=== PATIENT | female | born 1955 | race African-American/Black ===

== ENCOUNTER 2020-01-23 01:33 | Outpatient (CLI) | payer MEDICARE, SELFPAY ==
[2020-01-23 18:04] LABS: SARS-CoV-2 RNA PCR Negative
== END 2020-01-23 01:34 | disposition home or self-care (01) ==
LOC: ANHCOVIDDT 01:34
PROVIDERS: PCP Internal Medicine; Visit Provider Internal Medicine Gastroenterology
DX: Z01.812 Encounter for preprocedural laboratory examination (principal); Z20.828 Contact with and (suspected) exposure to other viral communicable diseases
CPT/HCPCS: 87635; C9803; U0003

== ENCOUNTER 2020-01-23 07:06 | Outpatient (CLI) | payer MEDICARE, SELFPAY ==
[2020-01-23 07:54] LABS: Alanine Aminotransferase 18 U/L (4-35); Albumin Level 4.2 g/dL (3.5-5.1); Alkaline Phosphatase 87 U/L (38-126); Anion Gap 8 mmol/L (8-16); Aspartate Amino Transferase 22 U/L (14-36); Bilirubin,Total 0.4 mg/dL (0.2-1.3); Blood Urea Nitrogen 13 mg/dL (7-17); Calcium 9.1 mg/dL (8.4-10.2); Carbon Dioxide 30 mmol/L (22-30); Chloride 102 mmol/L (98-107); Cholesterol 148 mg/dL (0-200); Estimated Glomerular Filt Rate > 60; Glucose 146 mg/dL (65-105); HDL Direct 39 mg/dL; Potassium 3.9 mmol/L (3.4-5.0); Sodium 140 mmol/L (137-145); Triglycerides 88 mg/dL (<150)
[2020-01-23 08:04] LABS: LDL Cholesterol Direct 92 mg/dL
[2020-01-23 08:09] LABS: Basophils Absolute Auto 0.1 K/mm3 (0.0-0.1); Basophils Percent Auto 0.8 % (0.2-1.2); Eosinophils Absolute Auto 0.1 K/mm3 (0-0.3); Eosinophils Percent Auto 1.9 % (0-4.4); Hematocrit 41.4 % (37.0-47.0); Hemoglobin 13.4 g/dL (12.0-15.0); Immature Granulocyte Absolute 0.09 K/mm3 (0.00-0.031); Immature Granulocyte Percent A 1.2 % (0-0.5); Lymphocytes Absolute Auto 2.18 K/mm3 (0.9-3.2); Lymphocytes Percent Auto 29.1 % (18.3-44.2); Mean Corpuscular HGB Conc 32.4 g/dl (32-36); Mean Corpuscular Hemoglobin 29.8 pg (26-34); Mean Corpuscular Volume 92.2 fl (80-100); Mean Platelet Volume 9.6 fl (7.4-10.4); Monocytes Absolute Auto 0.6 K/mm3 (0.1-0.6); Monocytes Percent Auto 8.2 % (2.6-8.5); Neutrophils Absolute Auto 4.4 K/mm3 (1.3-6.7); Neutrophils Percent Auto 58.8 % (45.5-73.1); Platelet Count Result 262 k/mm3 (150-375); Red Blood Count 4.49 M/mm3 (4.2-5.4); Red Cell Distribution Width 12.9 % (11.5-14.5); White Blood Count 7.5 K/mm3 (4.5-10.0)
[2020-01-23 08:36] LABS: Creatinine Urine 172.5 mg/dL
[2020-01-23 08:40] LABS: MALB Creatinine Ratio 11.8 mg/g (0-30); Microalbumin Urine Random 20.4 mg/L (0-16.7)
[2020-01-23 08:58] LABS: Vitamin D 25 Hydroxy 48.6 ng/mL
[2020-01-23 13:17] LABS: Hemoglobin A1C 7.2 % (<5.7)
== END 2020-01-23 07:07 | disposition home or self-care (01) ==
PROVIDERS: PCP Internal Medicine; Visit Provider Internal Medicine
DX: I10 Essential (primary) hypertension (principal); E55.9 Vitamin D deficiency, unspecified; E11.9 Type 2 diabetes mellitus without complications; E78.2 Mixed hyperlipidemia; Z51.81 Encounter for therapeutic drug level monitoring; Z79.899 Other long term (current) drug therapy
CPT/HCPCS: 36415; 80053; 80061; 82043; 82306; 83036; 84443; 85025; 87635; C9803; U0003

== ENCOUNTER 2020-01-25 11:09 | Outpatient (CLI) | payer MEDICARE, SELFPAY ==
--- NOTE | 2020-01-25 11:36 | ECG_ITS ---
Measurements Intervals [place] Rate: 79 P: 52 AL: 152 QRS: -18 QRSD: 77 T: 51 QT: 378 QTc: 436 Interpretive Statements SINUS RHYTHM CANNOT RULE OUT SEPTAL INFARCT, AGE INDETERMINATE ABNORMAL ECG Electronically Signed On 01-25-2020 13:49:45 ELECTRONIC DESIGN ENGINEER by Santy Norman D.O.
[2020-01-29 19:09] LABS: Glutamic acid decarboxylase AA <5 IU/mL (<5)
[2020-02-01 10:55] LABS: Islet Cell Antibody Screen NEGATIVE (NEGATIVE)
== END 2020-01-25 11:10 | disposition home or self-care (01) ==
PROVIDERS: PCP Internal Medicine; Visit Provider Internal Medicine
DX: Z01.818 Encounter for other preprocedural examination (principal); E11.9 Type 2 diabetes mellitus without complications; I10 Essential (primary) hypertension; R94.31 Abnormal electrocardiogram [ECG] [EKG]
CPT/HCPCS: 36415; 86341; 93005

== ENCOUNTER 2020-01-27 02:01 | Day surgery (SDC) | payer MEDICARE, SELFPAY ==
[2020-01-22 13:04] VITALS: BMI 25.8
[2020-01-27 09:37] VITALS: BP 125/81; PULSE 89; RESP 16; TEMP 36.2; O2SAT 100; BMI 25.5
[2020-01-27] MEDS: LACTATED RINGERS 1,000 ML 150 ML IV CONT (09:52)
[2020-01-27 09:53] LABS: Glucose Point of Care 130 (65-105)
--- NOTE | 2020-01-27 09:55 | WPDANESEPPF ---
Anes - Initial Pre Proc Eval Procedure: Operation Date: 01/27/20 10:30 Proposed Procedures p Screening Colonoscopy - Gregg Russell MD Date/Time: 01/27/20 09:55 Surgeon: Gregg Russell MD Pre Op Diagnosis: neoplasm screening Patient Data Age: 64 Gender: F Height: 5 ft 8 in Weight: 76.2 kg Last Vital Signs Temp 36.2 C L 01/27/20 09:37 Pulse 89 01/27/20 09:37 Resp 16 01/27/20 09:37 BP 125/81 01/27/20 09:37 Pulse Ox 100 01/27/20 09:37 Allergies Allergy/AdvReac Type Severity Reaction Status Date / Time No Known Allergies Allergy Verified 01/27/20 09:35 Home Medications Medication Instructions Recorded Confirmed Type aspirin 81 mg tablet,delayed 81 mg PO DAILY #90 tablet 01/20/20 01/22/20 Rx release cholecalciferol (vitamin D3) 125 125 mcg PO DAILY #1 cap 01/20/20 01/22/20 Rx mcg (5,000 unit) capsule dulaglutide 0.75 mg/0.5 mL 0.75 mg SUBCUT WEEKLY #2 ml 01/20/20 01/22/20 Rx subcutaneous pen injector flash glucose sensor #1 ea 01/20/20 01/20/20 Rx lisinopril 40 mg tablet 40 mg PO DAILY #90 tablet 01/20/20 01/22/20 Rx metformin 500 mg tablet 1,000 mg PO BID 90 Days #360 tablet 01/20/20 01/22/20 Rx pravastatin 10 mg tablet 10 mg PO DAILY #90 tablet 01/20/20 01/22/20 Rx Laboratory Tests 01/27/20 09:43 POC Capillary Glucose 130 mg/dl H mg/dl (65-105) Patient hx anesthesia problems: none Family hx anesthesia problems: none PMFSH Past Medical History Medical History Diabetes Hyperlipidemia Hypertension Family History Family History Sibling Family history of diabetes mellitus in first degree relative Father Family history of lung cancer Mother Patient's mother is Social History Social History Years smoked: 7 Smoking status: Former smoker Tobacco type: cigarettes Alcohol intake: current Living arrangements: alone Spiritual care concerns: No Anes - Eval Final PreProcedure Day of Procedure 01/27/20 09:55 Patient weight: overweight Heart: regular rate and rhythm Lungs: clear to auscultation Airway: Mallampati scale class II Neurological: alert and oriented Last oral intake: >/= 8 hours ASA classification: III Emergent: no Anesthetic plan: proceed Anesthesia type and monitoring: general GIVS and standard monitoring Informed Consent: The patient's anesthetic plan and its attendant risks and benefits were discussed with the patient/family/POA. Questions were solicited and answers provided to the satisfaction of the patient/family/POA.
--- NOTE | 2020-01-27 10:34 | PM.HPGS ---
History of Present Illness History of Present Illness Consent: Risks, benefits, and alternatives have been discussed and questions answered. Patient agrees to proceed with procedure. Chief complaint: neoplasm screening Narrative: Oni Smallwood is a 64 year old female with colon polyps 2 years ago in [place], sister with colon cancer. Recent change in bowel habits. Review of Systems Constitutional: Constitutional: Denies headache(s) and Denies weakness Eyes: Eyes: Denies blurry vision ENT: Reports Normal hearing present, Denies headache(s) and Denies neck pain Cardiovascular: Cardiovascular: Denies chest pain and Denies dyspnea Respiratory: Respiratory: Denies dyspnea Gastrointestinal: Gastrointestinal: Reports no additional gastrointestinal complaints Genitourinary: Genitourinary: Denies dysuria Musculoskeletal: Musculoskeletal: Denies neck pain Integumentary/Breasts: Skin/Breast: Denies dry skin Neurologic: Reports Normal hearing present, Denies headache(s) and Denies weakness Psychiatric: Psychiatric: Denies anxiety Endocrine: Endocrine: Denies change in body appearance Hematologic/Lymphatic: Hematologic/Lymphatic: Denies easy bleeding Allergic/Immunologic: Allergic/Immunologic: Denies urticaria PMFSH Past Medical History Medical History Diabetes Hyperlipidemia Hypertension Family History Family History Sibling Family history of diabetes mellitus in first degree relative Father Family history of lung cancer Mother Patient's mother is Social History Social History Years smoked: 7 Smoking status: Former smoker Tobacco type: cigarettes Alcohol intake: current Living arrangements: alone Spiritual care concerns: No Meds Home Medications and Allergies Home Medications Medication Instructions Recorded Confirmed Type aspirin 81 mg tablet,delayed 81 mg PO DAILY #90 tablet 01/20/20 01/22/20 Rx release cholecalciferol (vitamin D3) 125 125 mcg PO DAILY #1 cap 01/20/20 01/22/20 Rx mcg (5,000 unit) capsule dulaglutide 0.75 mg/0.5 mL 0.75 mg SUBCUT WEEKLY #2 ml 01/20/20 01/22/20 Rx subcutaneous pen injector flash glucose sensor #1 ea 01/20/20 01/20/20 Rx lisinopril 40 mg tablet 40 mg PO DAILY #90 tablet 01/20/20 01/22/20 Rx metformin 500 mg tablet 1,000 mg PO BID 90 Days #360 tablet 01/20/20 01/22/20 Rx pravastatin 10 mg tablet 10 mg PO DAILY #90 tablet 01/20/20 01/22/20 Rx Allergies Allergy/AdvReac Type Severity Reaction Status Date / Time No Known Allergies Allergy Verified 01/27/20 09:35 Vital Signs Vital Signs - 24 hr 01/27/20 09:37 Temperature 97.1 F L Pulse Rate 89 Respiratory Rate 16 Blood Pressure 125/81 Pulse Oximetry 100 Exam Const: General: comfortable and no acute distress HENMT: General nose exam: Normal nares present Eyes: General: appearance normal, both eyes and all related structures Neck: Neck: no JVD Resp: Auscultation: clear to auscultation bilaterally Cardio: Rate: regular rate Rhythm: regular rhythm GI: Inspection: non-distended GI Palp: Yes Soft to palpation Skin: General skin exam: normal color Neuro: General: gait normal Speech: normal speech Extrem: General: normal to inspection Psych: Mental Status: mental status grossly normal Assessment and Plan Assessment and plan (1) Adenomatous colon polyp: Code(s): D12.6 - Benign neoplasm of colon, unspecified Status: Acute Assessment and Plan: will proceed with colonoscopy
[2020-01-27 10:58] VITALS: BP 122/71; PULSE 88; RESP 26; O2SAT 99
[2020-01-27 11:08] VITALS: BP 126/72; PULSE 87; RESP 18; O2SAT 99
[2020-01-27 11:18] VITALS: BP 120/72; PULSE 84; RESP 19; O2SAT 100
== END 2020-01-27 11:31 | disposition home or self-care (01) ==
PROVIDERS: PCP Internal Medicine; Visit Provider Internal Medicine Gastroenterology
PROC: 0DJD8ZZ Inspection of Lower Intestinal Tract, Via Natural or Artificial Opening Endoscopic (ICD-10-PCS; CPT 45378; principal; 2020-01-27 10:30)
DX: Z12.11 Encounter for screening for malignant neoplasm of colon (principal); K57.30 Diverticulosis of large intestine without perforation or abscess without bleeding; I10 Essential (primary) hypertension; E11.9 Type 2 diabetes mellitus without complications; E78.5 Hyperlipidemia, unspecified; Z80.0 Family history of malignant neoplasm of digestive organs; Z87.891 Personal history of nicotine dependence; Z86.010 Personal history of colon polyps
CPT/HCPCS: G0105; J2001; J2704; J7120

== ENCOUNTER 2020-02-18 10:27 | Outpatient (CLI) | payer MEDICARE, SELFPAY ==
--- NOTE | ~2020-02-18 | MM_ITS ---
EXAMINATION: MM screening [facility] BI w carmen HISTORY: Screening mammogram TECHNIQUE: Craniocaudal and mediolateral oblique 3-D tomosynthesis images were obtained and synthetic 2-D images were generated. CAD analysis was submitted and interpreted. COMPARISON: 12/06/2011, 11/16/2010 bilateral digital screening mammogram examinations BREAST PARENCHYMAL COMPOSITION: The breasts are heterogeneously dense, which may obscure small masses . FINDINGS: There is no evidence of suspicious mass, calcification, or architectural distortion to sugg est malignancy in either breast. There has been no suspicious interval change. IMPRESSION: 1. No mammographic evidence of malignancy. 2. Recommend routine screening mammography in one year. BI-RADS Category 1: Negative.. Reviewed, dictated and finalized at location A. [facility]
== END 2020-02-18 10:28 | disposition home or self-care (01) ==
LOC: ANHIMG 10:31
PROVIDERS: PCP Internal Medicine; Visit Provider Internal Medicine
DX: Z12.31 Encounter for screening mammogram for malignant neoplasm of breast (principal)
CPT/HCPCS: 77063; 77067

== ENCOUNTER 2020-03-02 08:58 | Outpatient (CLI) | payer MEDICARE, SELFPAY ==
--- NOTE | ~2020-03-02 | DEXA_ITS ---
Bone Density Report Name: Oni Morales Age: 64 Sex: Female Ethnicity: White Date of : 1955 Indication: postmenopausal; Referring Provider: GLENN SMALL Study: Bone densitometry was performed. Exam Date: March 02, 2020 Accession number: [id number] Bone Density: Region BMD T-score Z-score Classification AP Spine (L1, L3, L4) 1.229 1.6 3.4 Normal Femoral Neck (Left) 0.808 -0.4 1.2 Normal Total Hip (Left) 0.958 0.1 1.4 Normal Total Hip Bilateral Avg 0.998 0.5 1.7 Normal Femoral Neck (Right) 0.843 0.0 1.5 Normal Total Hip (Right) 1.037 0.8 2.0 Normal World Health Organization criteria for BMD impression classify patients as: Normal (T-score at or above -1.0), Osteopenia (T-score between -1.0 and -2.5), or Osteoporosis (T-score at or below -2.5). 10-year Fracture Risk: FRAX not reported because: All T-scores for Spine Total, Hip Total, Femoral Neck at or above -1.0 Clinical Information Provided by Patient: Has used the following medications: Vitamin D Patient maximum height was 68 Menopause Age: 51 Drinks caffeinated beverages Onset of menses at age 12 Number of children 2 Impression: The patient has normal bone mass. Discussion: BONE DENSITY IS ABOVE THE MINIMUM DESIRABLE LEVEL AT ALL SKELETAL SITES TESTED. This patient?s bone mineral density is above the minimum desirable level (T-score -1.0 or better) at all sites measured. The patient should follow a healthful lifestyle (good nutrition with adequate calcium and vitamin D, and appropriate weight-bearing exercise). Follow-Up: Consider repeating this study in 5 years or sooner if there is some new clinical indication. Reported by: [facility] on 03/02/2020 9:30:00 AM. Reviewed, dictated and finalized at location A. [facility] CENTERStephanie
== END 2020-03-02 08:59 | disposition home or self-care (01) ==
LOC: ANHIMG 09:00
PROVIDERS: PCP Internal Medicine; Visit Provider Internal Medicine
DX: Z78.0 Asymptomatic menopausal state (principal)
CPT/HCPCS: 77080

== ENCOUNTER 2020-05-05 08:24 | Outpatient (CLI) | payer MEDICARE, SELFPAY ==
[2020-05-05 09:04] LABS: Hemoglobin A1C 5.9 % (<5.7)
[2020-05-05 09:05] LABS: Alanine Aminotransferase 19 U/L (4-35); Albumin Level 4.1 g/dL (3.5-5.1); Alkaline Phosphatase 68 U/L (38-126); Anion Gap 8 mmol/L (8-16); Aspartate Amino Transferase 23 U/L (14-36); Bilirubin,Total 0.5 mg/dL (0.2-1.3); Blood Urea Nitrogen 15 mg/dL (7-17); Calcium 9.1 mg/dL (8.4-10.2); Carbon Dioxide 29 mmol/L (22-30); Chloride 107 mmol/L (98-107); Estimated Glomerular Filt Rate > 60; Glucose 107 mg/dL (65-105); Potassium 4.1 mmol/L (3.4-5.0); Sodium 144 mmol/L (137-145)
[2020-05-05 09:43] LABS: MALB Creatinine Ratio 8.9 mg/g (0-30); Microalbumin Urine Random 16.9 mg/L (0-16.7)
== END 2020-05-05 08:25 | disposition home or self-care (01) ==
LOC: ANHLAB 08:28
PROVIDERS: PCP Internal Medicine; Visit Provider Internal Medicine
DX: E11.9 Type 2 diabetes mellitus without complications (principal)
CPT/HCPCS: 36415; 80053; 82043; 83036

== ENCOUNTER 2020-08-09 08:23 | Outpatient (CLI) | payer MEDICARE, SELFPAY ==
[2020-08-09 11:01] LABS: Creatinine Urine 117.1 mg/dL
[2020-08-09 11:04] LABS: MALB Creatinine Ratio 5.9 mg/g (0-30); Microalbumin Urine Random 6.9 mg/L (0-16.7)
== END 2020-08-09 08:24 | disposition home or self-care (01) ==
LOC: ANHLAB 08:27
PROVIDERS: PCP Internal Medicine; Visit Provider Internal Medicine
DX: E11.9 Type 2 diabetes mellitus without complications (principal)
CPT/HCPCS: 36415; 82043; 83036

== ENCOUNTER 2020-12-13 08:48 | Outpatient (CLI) | payer MEDICARE, SELFPAY ==
[2020-12-13 09:34] LABS: Alanine Aminotransferase 19 U/L (4-35); Albumin Level 4.4 g/dL (3.5-5.1); Alkaline Phosphatase 72 U/L (38-126); Anion Gap 11 mmol/L (8-16); Aspartate Amino Transferase 22 U/L (14-36); Bilirubin,Total 0.6 mg/dL (0.2-1.3); Blood Urea Nitrogen 12 mg/dL (7-17); Calcium 8.8 mg/dL (8.4-10.2); Carbon Dioxide 24 mmol/L (22-30); Chloride 105 mmol/L (98-107); Estimated Glomerular Filt Rate > 60; Glucose 136 mg/dL (65-110); Potassium 3.7 mmol/L (3.4-5.0); Sodium 140 mmol/L (137-145)
[2020-12-13 09:57] LABS: Hemoglobin A1C 7.3 % (<5.7)
[2020-12-13 11:03] LABS: Creatinine Urine 145.4 mg/dL
[2020-12-13 11:08] LABS: MALB Creatinine Ratio 6.6 mg/g (0-30); Microalbumin Urine Random 9.6 mg/L (0-16.7)
== END 2020-12-13 08:49 | disposition home or self-care (01) ==
PROVIDERS: PCP Internal Medicine; Visit Provider Internal Medicine
DX: E11.9 Type 2 diabetes mellitus without complications (principal)
CPT/HCPCS: 36415; 80053; 82043; 83036

== ENCOUNTER 2021-03-20 09:09 | Outpatient (CLI) | payer MEDICARE, SELFPAY ==
[2021-03-20 11:19] LABS: Hemoglobin A1C 6.2 % (<5.7)
[2021-03-20 16:51] LABS: Creatinine Urine 86.3 mg/dL
[2021-03-20 16:55] LABS: MALB Creatinine Ratio 7.6 mg/g (0-30); Microalbumin Urine Random 6.6 mg/L (0-16.7)
== END 2021-03-20 09:10 | disposition home or self-care (01) ==
PROVIDERS: PCP Internal Medicine; Visit Provider Internal Medicine
DX: E11.9 Type 2 diabetes mellitus without complications (principal)
CPT/HCPCS: 36415; 82043; 83036

== ENCOUNTER 2021-03-22 10:31 | Outpatient (CLI) | payer MEDICARE, SELFPAY ==
--- NOTE | ~2021-03-22 | MM_ITS ---
EXAMINATION: MM screening [facility] BI w carmen HISTORY: Screening mammogram TECHNIQUE: Craniocaudal and mediolateral oblique 3-D tomosynthesis images were obtained and synthetic 2-D images were generated. CAD analysis was submitted and interpreted. COMPARISON: 02/18/2020, 12/06/2011, 11/16/2010 BREAST PARENCHYMAL COMPOSITION: The breasts are heterogeneously dense, which may obscure small masses . FINDINGS: There is no evidence of suspicious mass, calcification, or architectural distortion to sugg est malignancy in either breast. There has been no suspicious interval change. IMPRESSION: 1. No mammographic evidence of malignancy. 2. Recommend routine screening mammography in one year. BI-RADS Category 1: Negative Reviewed, dictated and finalized at location A. [employer]ANT
== END 2021-03-22 10:32 | disposition home or self-care (01) ==
LOC: ANHIMG 10:33
PROVIDERS: PCP Internal Medicine; Visit Provider Internal Medicine
DX: Z12.31 Encounter for screening mammogram for malignant neoplasm of breast (principal)
CPT/HCPCS: 77063; 77067; G0109

== ENCOUNTER 2021-04-14 09:30 | Outpatient (RCR) | payer MEDICARE, SELFPAY ==
[2021-01-24 12:45] VITALS: BMI 24.9
[2021-01-24 12:49] VITALS: BMI 24.9
== END 2021-04-24 14:44 | disposition home or self-care (01) ==
LOC: ANHDMC 09:30
PROVIDERS: PCP Internal Medicine; Visit Provider Internal Medicine
DX: E11.9 Type 2 diabetes mellitus without complications (principal); Z71.3 Dietary counseling and surveillance; Z71.89 Other specified counseling
CPT/HCPCS: 97802; 99199; G0108; G0109

== ENCOUNTER 2021-04-18 13:57 | Outpatient (CLI) | payer MEDICARE, SELFPAY ==
[2021-04-18 15:14] LABS: Add Urine Microscopic? YES; Appearance Urine Clear (Clear); Bacteria Urine Trace /hpf; Bilirubin Urine Negative (Negative); Blood Urine 1+ (Negative); Color Urine Yellow (Yellow); Glucose Urine UA 3+ mg/dL (Negative); Ketones Urine Negative (Negative); Leukocyte Esterase Ur Negative LEU/UL (Negative); Mucus Urine Rare /lpf; Nitrate Urine Negative (Negative); Protein Urine Negative (Negative); Squamous Epithelial Cell Urine Occasional /hpf (Few); Urobilinogen Urine Negative mg/dL (<2.0); WBC Urine 0-3 /hpf
[2021-04-18 15:17] LABS: Specific Grav Ur 1.032 (1.001-1.035)
== END 2021-04-18 13:58 | disposition home or self-care (01) ==
LOC: ANHLAB 13:59
PROVIDERS: PCP Internal Medicine; Visit Provider Internal Medicine
DX: N39.0 Urinary tract infection, site not specified (principal)
CPT/HCPCS: 81001

== ENCOUNTER 2021-04-19 12:35 | Outpatient (CLI) | payer MEDICARE, SELFPAY ==
--- NOTE | ~2021-04-19 | XR_ITS ---
XR abdomen/kub 1V DATE: 04/19/2021 12:54 INDICATION: Left flank pain. Kidney calculus. TECHNIQUE: AP projections, 2 views COMPARISON: None FINDINGS: There is an approximately 1.5 x 7 mm calcification overlying the left lateral pelvic area; left ureteral calculus is a consideration, but this could alternatively be arterial calcification. Co nsider noncontrast CT abdomen pelvis for more definitive determination. No other apparent calcification overlying the urinary tracts. No visceromegaly is evident. There is a prominent amount of fecal material in the colon but no evidence of bowel obstruction. IMPRESSION: 1.5 x 7 mm left pelvic calcification; differential diagnosis includes ureteral calculus o r arterial calcification Noncontrast CT examination would be more definitive. Reviewed, dictated and finalized at Location A. Reviewed, dictated and finalized at location B. MAN DRIVER IMPRESSION: 1.5 x 7 mm left pelvic calcification; differential diagnosis includ es ureteral calculus or arterial calcification Noncontrast CT examination would be more definitive.
== END 2021-04-19 12:36 | disposition home or self-care (01) ==
LOC: ANHIMG 12:40
PROVIDERS: PCP Internal Medicine; Visit Provider Internal Medicine
DX: N20.0 Calculus of kidney (principal)
CPT/HCPCS: 74018

== ENCOUNTER 2021-04-25 10:40 | Outpatient (CLI) | payer MEDICARE, SELFPAY ==
--- NOTE | ~2021-04-25 | CT_ITS ---
EXAMINATION: CT abdomen pelvis wo con DATE: 04/25/2021 11:06 INDICATION: Left flank pain for 2 months. Pain radiates to back. Nausea and vomiting. TECHNIQUE: Computed tomography (CT) of the abdomen and pelvis was performed without intravenous contr ast. Automated exposure control and iterative reconstruction technique were employed. Exam dose: 179 .74 mGy-cm total exam DLP. COMPARISON: April 19, 2021 KUB FINDINGS: The lung bases are clear. Normal heart size. No pericardial or pleural effusion. The liver, gallbladder, bile ducts, spleen, pancreas, pancreatic duct, and adrenal glands and kidneys are unremarkable on this limited noncontrast examination. No urinary tract calculus or hydroureteron ephrosis. The urinary bladder, uterus and adnexal areas are unremarkable other than small uterine chinedu cification likely related to fibroid. There is diverticulosis of the sigmoid colon; no evidence of diverticulitis. No bowel obstruction or intraperitoneal free air. Normal caliber and minimal calcification of the abdominal aorta. Left pelvic calcifications are likel y iliac arterial calcified plaques. No intraperitoneal or retroperitoneal or pelvic mass lesion or a denopathy or ascites is detected. 2.3 cm wide mouth of umbilical fat-containing hernia. Included skeletal structures are unremarkable. IMPRESSION: Diverticulosis of sigmoid colon; no CT evidence of diverticulitis Reviewed, dictated and finalized at Location A. Reviewed, dictated and finalized at location A. DER CHIPPER
== END 2021-04-25 10:41 | disposition home or self-care (01) ==
PROVIDERS: PCP Internal Medicine; Visit Provider Internal Medicine
DX: N20.0 Calculus of kidney (principal); K57.30 Diverticulosis of large intestine without perforation or abscess without bleeding
CPT/HCPCS: 74176

== ENCOUNTER 2021-06-20 10:18 | Outpatient (RCR) | payer MEDICARE, SELFPAY | END 2021-06-20 11:19 | disposition home or self-care (01) | LOC: ANHDMC 10:18 | PROVIDERS: PCP Internal Medicine; Visit Provider Internal Medicine | DX: E11.9 Type 2 diabetes mellitus without complications (principal); Z71.89 Other specified counseling | CPT/HCPCS: G0108 ==

== ENCOUNTER 2021-10-24 08:14 | Outpatient (CLI) | payer MEDICARE, SELFPAY ==
[2021-10-24 09:45] LABS: Alanine Aminotransferase 27 U/L (6-35); Albumin Level 4.5 g/dL (3.5-5.1); Alkaline Phosphatase 80 U/L (38-126); Anion Gap 9 mmol/L (8-16); Aspartate Amino Transferase 25 U/L (14-36); Bilirubin,Total 0.5 mg/dL (0.2-1.3); Blood Urea Nitrogen 10 mg/dL (7-17); Calcium 9.2 mg/dL (8.4-10.2); Carbon Dioxide 29 mmol/L (22-30); Chloride 103 mmol/L (98-107); Estimated Glomerular Filt Rate > 60; Glucose 106 mg/dL (65-110); Potassium 3.9 mmol/L (3.4-5.0); Sodium 141 mmol/L (137-145)
[2021-10-24 09:53] LABS: Hemoglobin A1C 6.2 % (<5.7)
[2021-10-24 10:10] LABS: Creatinine Urine 217.8 mg/dL
[2021-10-24 10:17] LABS: Microalbumin Urine Random 17.4 mg/L (0-16.7)
== END 2021-10-24 08:15 | disposition home or self-care (01) ==
LOC: ANHLAB 08:17
PROVIDERS: PCP Internal Medicine; Visit Provider Internal Medicine
DX: E11.9 Type 2 diabetes mellitus without complications (principal)
CPT/HCPCS: 36415; 80053; 82043; 83036

== ENCOUNTER 2022-04-12 08:55 | Outpatient (CLI) | payer MEDICARE, SELFPAY ==
--- NOTE | ~2022-04-12 | DEXA_ITS ---
Bone Density Report Name: LOGAN PLATA Age: 66 Sex: Female Ethnicity: White Date of : 1955 Indication: postmenopausal; screening for osteoporosis; prior fracture; Referring Provider: DK DUFFY Study: Bone densitometry was performed. Exam Date: April 12, 2022 Accession number: [id number] Bone Density: Region BMD T-score Z-score Classification AP Spine(L1, L3, L4) 1.268 2.0 3.9 Normal Femoral Neck (Left) 0.765 -0.8 0.9 Normal Total Hip (Left) 0.943 0.0 1.4 Normal Femoral Neck (Right) 0.849 0.0 1.6 Normal Total Hip (Right) 0.993 0.4 1.8 Normal Total Hip Mean 0.968 0.2 1.6 Normal World Health Organization criteria for BMD impression classify patients as: Normal (T-score at or above -1.0), Osteopenia (T-score between -1.0 and -2.5), or Osteoporosis (T-score at or below -2.5). 10-year Fracture Risk: FRAX not reported because: All T-scores for Spine Total, Hip Total, Femoral Neck at or above -1.0 Clinical Information Provided by Patient: Has had a low trauma fracture Has used the following medications: Vitamin D Patient maximum height was 68 Menopause Age: 51 Does not regularly consume dairy products Onset of menses at age 14 Number of children 2 Impression: The patient has normal bone mass. The patient has risk factors, including: previous fracture. Discussion: BONE DENSITY IS ABOVE THE MINIMUM DESIRABLE LEVEL AT ALL SKELETAL SITES TESTED. This patient?s bone mineral density is above the minimum desirable level (T-score -1.0 or better) at all sites measured. The patient should follow a healthful lifestyle (good nutrition with adequate calcium and vitamin D, and appropriate weight-bearing exercise). Follow-Up: Consider repeating this study in 5 years or sooner if there is some new clinical indication. Reported by: [facility] on 04/12/2022 9:20:00 AM. Reviewed, dictated and finalized at location AEmmanuel CASTILLO
== END 2022-04-12 08:56 | disposition home or self-care (01) ==
LOC: ANHIMG 08:57
PROVIDERS: PCP Internal Medicine; Visit Provider Student in an Organized Health Care Education/Training Program
DX: Z78.0 Asymptomatic menopausal state (principal)
CPT/HCPCS: 77080

== ENCOUNTER 2022-04-17 10:07 | Outpatient (CLI) | payer MEDICARE, SELFPAY ==
--- NOTE | ~2022-04-17 | MM_ITS ---
EXAMINATION: MM screening danna BI w carmen HISTORY: Screening TECHNIQUE: Craniocaudal and mediolateral oblique 3-D tomosynthesis images were obtained and synthetic 2-D images were generated. CAD analysis was submitted and interpreted. COMPARISON: Comparison to multiple prior studies sequentially, with oldest reviewed study dated 05/2019. BREAST PARENCHYMAL COMPOSITION: There are scattered areas of fibroglandular density. FINDINGS: There is no evidence of suspicious mass, calcification, or architectural distortion to sugg est malignancy in either breast. There has been no suspicious interval change. IMPRESSION: 1. No mammographic evidence of malignancy. 2. Recommend routine screening mammography in one year. BI-RADS Category 1: Negative Reviewed, dictated and finalized at location A. ENT[employer] COOK [employer] CASHIER
== END 2022-04-17 10:08 | disposition home or self-care (01) ==
LOC: ANHIMG 10:08
PROVIDERS: PCP Internal Medicine; Visit Provider Student in an Organized Health Care Education/Training Program
DX: Z12.31 Encounter for screening mammogram for malignant neoplasm of breast (principal)
CPT/HCPCS: 77063; 77067

== ENCOUNTER 2022-06-04 08:37 | Outpatient (CLI) | payer MEDICARE, SELFPAY ==
[2022-06-04 09:29] LABS: Alanine Aminotransferase 19 U/L (6-35); Albumin Level 4.6 g/dL (3.5-5.1); Alkaline Phosphatase 85 U/L (38-126); Anion Gap 7 mmol/L (8-16); Aspartate Amino Transferase 22 U/L (14-36); Bilirubin,Total 0.6 mg/dL (0.2-1.3); Blood Urea Nitrogen 11 mg/dL (7-17); Calcium 9.3 mg/dL (8.4-10.2); Carbon Dioxide 29 mmol/L (22-30); Chloride 103 mmol/L (98-107); Cholesterol 141 mg/dL (0-200); Estimated Glomerular Filt Rate > 60; Glucose 125 mg/dL (65-110); HDL Direct 37 mg/dL; Potassium 3.8 mmol/L (3.4-5.0); Sodium 139 mmol/L (137-145); Triglycerides 107 mg/dL (<150)
[2022-06-04 09:43] LABS: LDL Cholesterol Direct 81 mg/dL
== END 2022-06-04 08:38 | disposition home or self-care (01) ==
LOC: ANHLAB 08:39
PROVIDERS: PCP Internal Medicine; Visit Provider Internal Medicine
DX: E78.5 Hyperlipidemia, unspecified (principal); E03.9 Hypothyroidism, unspecified; E11.9 Type 2 diabetes mellitus without complications; Z79.899 Other long term (current) drug therapy
CPT/HCPCS: 36415; 80053; 80061; 84443

== ENCOUNTER 2022-12-06 08:21 | Outpatient (CLI) | payer MEDICARE, SELFPAY ==
[2022-12-06 10:22] LABS: Alanine Aminotransferase 21 U/L (6-35); Albumin Level 4.3 g/dL (3.5-5.1); Alkaline Phosphatase 80 U/L (38-126); Anion Gap 8 mmol/L (8-16); Aspartate Amino Transferase 23 U/L (14-36); Bilirubin,Total 0.7 mg/dL (0.2-1.3); Blood Urea Nitrogen 11 mg/dL (7-17); Calcium 8.8 mg/dL (8.4-10.2); Carbon Dioxide 28 mmol/L (22-30); Chloride 104 mmol/L (98-107); Cholesterol 154 mg/dL (0-200); Estimated Glomerular Filt Rate > 60; Glucose 172 mg/dL (65-110); HDL Direct 39 mg/dL; Potassium 3.6 mmol/L (3.4-5.0); Sodium 140 mmol/L (137-145); Triglycerides 92 mg/dL (<150)
[2022-12-06 10:34] LABS: LDL Cholesterol Direct 89 mg/dL
== END 2022-12-06 08:22 | disposition home or self-care (01) ==
PROVIDERS: PCP Nurse Practitioner; Visit Provider Nurse Practitioner
DX: E11.9 Type 2 diabetes mellitus without complications (principal); E78.5 Hyperlipidemia, unspecified
CPT/HCPCS: 36415; 80053; 80061; 83036

== ENCOUNTER 2023-05-14 09:04 | Outpatient (CLI) | payer MEDICARE, SELFPAY ==
[2023-05-14 10:44] LABS: Alanine Aminotransferase 16 U/L (6-35); Albumin Level 4.1 g/dL (3.5-5.1); Alkaline Phosphatase 80 U/L (38-126); Anion Gap 7 mmol/L (8-16); Aspartate Amino Transferase 23 U/L (14-36); Bilirubin,Total 0.5 mg/dL (0.2-1.3); Blood Urea Nitrogen 12 mg/dL (7-17); Calcium 9.2 mg/dL (8.4-10.2); Carbon Dioxide 26 mmol/L (22-30); Chloride 105 mmol/L (98-107); Cholesterol 123 mg/dL (0-200); Estimated Glomerular Filt Rate > 60; Glucose 105 mg/dL (65-110); HDL Direct 37 mg/dL; Sodium 138 mmol/L (137-145); Triglycerides 86 mg/dL (<150)
[2023-05-14 10:55] LABS: LDL Cholesterol Direct 72 mg/dL
== END 2023-05-14 09:05 | disposition home or self-care (01) ==
PROVIDERS: PCP Nurse Practitioner; Visit Provider Nurse Practitioner
DX: E78.5 Hyperlipidemia, unspecified (principal); E11.9 Type 2 diabetes mellitus without complications
CPT/HCPCS: 36415; 80053; 80061; 83036

== ENCOUNTER 2024-02-28 07:32 | Outpatient (CLI) | payer MEDICARE, SELFPAY ==
[2024-02-28 08:05] LABS: Alanine Aminotransferase 17 U/L (6-35); Albumin Level 3.9 g/dL (3.5-5.1); Alkaline Phosphatase 78 U/L (38-126); Anion Gap 3 mmol/L (4-12); Aspartate Amino Transferase 22 U/L (14-36); Bilirubin,Total 0.4 mg/dL (0.2-1.3); Blood Urea Nitrogen 11 mg/dL (7-17); Calcium 8.8 mg/dL (8.4-10.2); Carbon Dioxide 29 mmol/L (22-30); Chloride 109 mmol/L (98-107); Cholesterol 113 mg/dL (0-200); Estimated Glomerular Filt Rate > 60; Glucose 121 mg/dL (65-110); HDL Direct 35 mg/dL; Potassium 3.7 mmol/L (3.4-5.0); Sodium 141 mmol/L (137-145); Triglycerides 79 mg/dL (<150)
[2024-02-28 08:16] LABS: LDL Cholesterol Direct 56 mg/dL
[2024-02-28 11:02] LABS: Hemoglobin A1C 7.4 % (<5.7)
== END 2024-02-28 07:33 | disposition home or self-care (01) ==
PROVIDERS: PCP Nurse Practitioner; Visit Provider Nurse Practitioner
DX: E11.9 Type 2 diabetes mellitus without complications (principal); E78.5 Hyperlipidemia, unspecified
CPT/HCPCS: 36415; 80053; 80061; 83036

== ENCOUNTER 2024-05-29 09:46 | Outpatient (CLI) | payer MEDICARE, SELFPAY ==
--- OUTSIDE RECORDS SUMMARY | 2024-05-29 10:23 | XMS_ITS ---
[facility] Address [address] [place], [place] [id number] Care Team Providers Care Extras Casting Director Name Role Phone TERRY Valentin Unavailable [phone] Zane Schreiber Unavailable Unavailable GARTH BROOKS Unavailable [phone] REASON FOR VISIT *General care Encounters Encounter Location Date Provider Diagnosis [facility] [place] [address] [address] [id number] 10/28/2023 GARTH BROOKS Plan Of Treatment No Information Progress Notes * LOGAN PLATA YDOB: 1955 (68 yo F)Acc No.[id number]:10/28/2023 Patient: Stephanie MATTHEWS JENNALOGAN Tiffanie Provider: Alexey Brooks DPM :1955 A ge:67 Y S ex:Female Date:10/28/2023 Address:[address] [place], [place] [id number] Subjective: * Chief Complaints: * 1 . *General care. * Medical History: Objective: * Vitals: Assessment: Plan: * Treatment: * Billing Information: * Visit Code: * Procedure Codes: * Electronic signature of GARTH BROOKS DPM on 05/29/2024 at 10:23 AM CDT Sign off status: Pending * Provider: Alexey Brooks DPM Date: 0 10/28/2023 Generated for Printi ng/Faxing/eTransmitting on: 0 05/29/2024 10:23 AM CDT
--- OUTSIDE RECORDS SUMMARY | 2024-05-29 10:23 | XMS_ITS ---
[facility] Address [address] [place], [place] [phone] Care Team Providers Care Data Miner Name Role Phone TERRY Valentin Unavailable [phone] Zane Schreiber Unavailable Unavailable GARTH BROOKS Unavailable [phone] REASON FOR VISIT Patient presents with painful toenails of both feet. They cause pain with shoes and ambulation. Theonset was gradual. The patient has diabetes mellitus Medications Medication SIG (Take, Route, Frequency, Duration) Notes Start Date End Date Status Ciclopirox Olamine 0.77 % APPLY SMALL AM OUNT TO FUNGAL TOENAILS 1-2X DAILY. External for 30 Days Active Trulicity 0.75 MG/0.5ML INJECT 0.75 MG ( 0.5 ML) SUBCUTANEOUSLY WEEKLY Subcutaneous for 28 Days Active metFORMIN HCl 500 MG TAKE 2 TABLETS BY M OUTH TWICE A DAY Oral for 90 Days Active Lisinopril 40 MG TAKE 1 TABLET BY YONNY TH EVERY DAY Oral for 90 Days Activ e Pravastatin Sodium 10 MG TAKE 1 TABLET B Y MOUTH EVERY DAY Oral for 90 Days Activ e Farxiga 5 MG TAKE 1 TABLET BY YONNY TH EVERY DAY Oral for 90 Days Activ e Vital Signs Weight 170 lbs 07/29/2023 Weight-kg 77.11 kg 07/29/2023 Height 68.00 in 07/29/2023 Height-cm 172.72 cm 07/29/2023 BMI 25.85 kg/m2 07/29/2023 Encounters Encounter Location Date Provider Diagnosis [facility] [place] [address] [place], [place] [id number] 07/29/2023 GARTH BROOKS Tinea unguium B35.1 ; Pain in right toe(s) M79.674 ; Pain in left toe(s) M79.675 ; Atherosclerosis of [place] arteries of extremities with intermittent claudication, bilateral legs I70.213 and Type 2 diabetes mellitus with other circulatory complications E11.59 Assessments Encounter Date Diagnosis (ICD Code) Assessment Notes Treatment Notes Treatment Clinical Notes Section Notes 07/29/2023 Tinea unguium (ICD-10 - B35.1) NAIL DEBRIDEMENT: Nails 1-5 Bilateral were debrided extensively with nail nippers and emery board, reducing length and girth to pink healthy tissue with any subungual debris and necrotic tissue removed 07/29/2023 Pain in right toe(s) (ICD-10 - M79.674) 07/29/2023 Pain in left toe(s) (ICD-10 - M79.675) 07/29/2023 Atherosclerosis of [place] arteries of extremities with intermittent claudication, bilateral legs (ICD-10 - I70.213) 07/29/2023 Type 2 diabetes mellitus with other circulatory complications (ICD-10 - E11.59) Diabetic Foot Care: The patient was educated on diabetes and the lower extremity. The patient was instructed to check his feet daily to report any problems or signs of infection immediately. The patient was provided written information on Diabetic Foot Care as well as the Amputation Prevention Guide. Plan Of Treatment Treatment Notes Assessment Notes Tinea unguium NAIL DEBRIDEMENT: Na ils 1-5 Bilateral were debrided extensively with nail nippers and emery board, reducing length and girth to pink healthy tissue with any subungual debris and necrotic tissue removed Type 2 diabetes mellitus wit h other circulatory complications Diabetic Foot Care: The patient was educated on diabetes and the lower extremity. The patient was instructed to check his feet daily to report any problems or signs of infection immediately. The patient was provided written information on Diabetic Foot Care as well as the Amputation Prevention Guide. Next Appt Details Follow Up: 10-12 Weeks, Reas on: At risk foot care, sooner if problems arise Progress Notes * LOGAN PLATA YDOB: 1955 (67 yo F)Acc No.[id number]:07/29/2023 Patient: LOGAN CHIANG Y Provider: Alexey Brooks DPM :1955 A ge:67 Y S ex:Female Date:07/29/2023 Address:[address] [place] [address] [id number] Subjective: * Chief Complaints: * 1 . Patient presents with painful toenails of both feet. They cause pain with shoes and ambulation. The onset was gradual. The patient has diabetes mellitus. * HPI: H PI: General care P lula presents to the office for diabetic foot care. Patient states that their nails are thickened, elongated and painful. Patient states that it is aggravated by shoe gear. Onset is gradual., Patient denies taking prescription blood thinners but does take a daily aspirin., Date last seen by Dr. Schreiber was May., Initials As. * Medical History: * Medications: T aking Trulicity 0.75 MG/0.5ML Solution Pen-injector INJECT 0.75 MG (0.5 ML) SUBCUTANEOUSLY WEEKLY Subcutaneous , Taking Farxiga 5 MG Tablet TAKE 1 TABLET BY MOUTH EVERY DAY Oral , Taking Pravastatin Sodium 10 MG Tablet TAKE 1 TABLET BY MOUTH EVERY DAY Oral , Taking Lisinopril 40 MG Tablet TAKE 1 TABLET BY MOUTH EVERY DAY Oral , Taking metFORMIN HCl 500 MG Tablet TAKE 2 TABLETS BY MOUTH TWICE A DAY Oral , Taking Ciclopirox Olamine 0.77 % Cream APPLY SMALL AMOUNT TO FUNGAL TOENAILS 1- 2X DAILY. External Objective: * Vitals: W t:170lbs, Wt-k.11 kg, Ht: 68.00 in, Ht-cm: 172.72 cm, BMI:25.85Index, Body Surface Area: 1.92. * Examination: C onstitutional: Constitutional T he patient is awake, alert, well developed, well groomed and well nourished. D ermatologic: Skin findings: S kin is thin, atrophic and lacking pedal hair. Nail pathology: N ails 1-5 bilateral are elongated, thick, discolored, and dystrophic with subungual debris. They are painful to palpation. ? V ascular: Dorsalis pedis pulse: 0 /4, bilateral. Posterior tibial pulse: 1 /4, bilaterally. Capillary refill: g reater than 3 seconds. Edema: N o edema, bilateral. N eurologic: Gross sensation G ross sensation is intact to light touch.? M usculoskeletal: Muscle Strength M uscle strength is 5/5 in regards to dorsiflexion, plantarflexion, inversion, and eversion in bilateral lower extremities. ? Assessment: * Assessment: 1. T inea unguium - B35.1 (Primary) 2 . P ain in right toe(s) - M79.674 3 . P ain in left toe(s) - M79.675 4 . A therosclerosis of [place] arteries of extremities with intermittent claudication, bilateral legs - I70.213 5 . T ype 2 diabetes mellitus with other circulatory complications - E11.59 Plan: * Treatment: 2. T ype 2 diabetes mellitus with other circulatory complications Notes: Diabetic Foot Care: The patient was educated on diabetes and the lower extremity. The patient was instructed to check his feet daily to report any problems or signs of infection immediately. The patient was provided written information on Diabetic Foot Care as well as the Amputation Prevention Guide. * Procedure Codes: 1 1721 DEBRIDE NAIL, 6 OR MORE, Modifiers: Q8 * Follow Up: 1 0-12 Weeks (Reason: At risk foot care, sooner if problems arise) * Billing Information: * Visit Code: * Procedure Codes: 73848 DEBRIDE NAIL, 6 OR MORE. Modifiers: Q8 * Sign off status: Completed true * Provider: Alexey Brooks DPM Date: 0 07/29/2023 Generated for Keke Cornelius/Husam on: 0 05/29/2024 10:23 AM CDT History and Physical Notes * HPI (History of Present Illness) Category Sub-Category Detail Notes Category Not es HPI General care Patient presents to the office for diabetic foot care. Patient states that their nails are thickened, elongated and painful. Patient states that it is aggravated by shoe gear. Onset is gradual., Patient denies taking prescription blood thinners but does take a daily aspirin., Date last seen by Dr. Schreiber was May., Initials As Examination Category Sub-Category Detail Notes Category Not es Dermatologic Skin findings: Skin is thin, at rophic and lacking pedal hair Nail pathology: Nails 1-5 bilateral are elongated, thick, discolored, and dystrophic with subungual debris. They are painful to palpation Neurologic Gross sensation Gross sensation is intact to light touch Vascular Dorsalis pedis pulse: 0/4, bilateral Edema: No edema, bilateral Capillary refill: greater than 3 secon ds Posterior tibial pulse: 1/4, bilaterally Musculoskeletal Muscle Strength Muscle strength is 5/5 in regards to dorsiflexion, plantarflexion, inversion, and eversion in bilateral lower extremities Constitutional Constitutional The patient is a wake, alert, well developed, well groomed and well nourished
--- OUTSIDE RECORDS SUMMARY | 2024-05-29 10:23 | XMS_ITS ---
Author Organization [facility] Address [address] [place], [place] [address] Care Team Providers Care Seafood Fisherman Name Role Phone TERRY Valentin Unavailable [phone] Zane Schreiber Unavailable Unavailable GARTH BROOKS Unavailable [phone] REASON FOR VISIT *General care Encounters Encounter Location Date Provider Diagnosis [facility] [place] [address] [address] [phone] 05/13/2023 GARTH BROOKS Plan Of Treatment No Information Progress Notes * LOGAN PLATA YDOB: 1955 (68 yo F)Acc No.[id number]:05/13/2023 Patient: Stephanie MATTHEWS JENNALOGAN Tiffanie Provider: Alexey Brooks DPM :1955 A ge:67 Y S ex:Female Date:05/13/2023 Address:[address] [place], [place] [phone] Subjective: * Chief Complaints: * 1 . *General care. * Medical History: Objective: * Vitals: Assessment: Plan: * Treatment: * Billing Information: * Visit Code: * Procedure Codes: * Electronic signature of GARTH BROOKS DPM on 05/29/2024 at 10:23 AM CDT Sign off status: Pending * Provider: Alexey Brooks DPM Date: 0 05/13/2023 Generated for Printi ng/Faxing/eTransmitting on: 0 05/29/2024 10:23 AM CDT
--- OUTSIDE RECORDS SUMMARY | 2024-05-29 10:23 | XMS_ITS | Data Portability ---
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 Hypertension: Elevated today in office, as well as in previous home measurements. a. Continue lisinopril 10mg once daily. Begin taking metoprolol succinate 25mg once daily. b. Continue to check BP twice daily if able, bring log to next appointment. c. Continue to follow low-sodium diet. d. Return to office in 1 month for follow-up. Call office if any questions/concern s. 2. Bounding pulse: Metoprolol succinate 25mg as noted above. 3. Diabetes: Most recent hemoglobin A1C 1 week ago 6.8! a. continue medicaton regimen, diabetic diet, and exercise. 4. Abnormal CT with calcium score in 2016: 159. Reviewed results in office today. No chest pain, no shortness of breath. Discussed when to seek medical attention. Ms. 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 Socorro Vizcarra [facility]- Reviewed and agree, Beverley canela Not available 02/10/2019 11:31:36 03/03/2019 03/03/2019 IMPRESSION/CLINI C AL RESUME: 1. Hypertension - suboptimal control. 2. History of palpitations that have largely resolved. 3. Calcium score of 159 in calendar year 2015, which is 75th percentile. She had a normal stress echo at that time. 4. Diabetes - treated and controlled by Dr. Adams. 5. Hyperlipidemia - treated and well controlled by Dr. Adams. 6. Positive family history for heart disease. Her mother had a small [place] and states her brother has an ICD and other family members have hyperlipidemia and hypertension. 7. History of , cataract surgery and colon polyps. 8. The patient retired in October of 2018 and really has a low stress existence right now. She has a 24-year-old daughter who has graduated from medical school and is doing a residency in [place] with lots of endodontics involved. A 26-year-old daughter has a master's degree in public health and is now working for the [employer] in [place], [place]. 9. Paulina is going to be moving back to her home in [place] sometime in March of 2018. RECOMMENDATIONS: We will stop her beta delmis since it has not really helped her at all. We are going to increase her lisinopril from 10 to 20 mg daily for two weeks ago, then go up to 40 mg daily and I will see her back in mid-March for a blood pressure check. Also, because of her chest pain and dyspnea, we will get a stress echo when I see her back in March. If her blood pressure is not well-controlled by that time, I will add a diuretic and she will call me if she has problems, questions or concerns. She is deciding whether she is going to come back from [place] for office visits after she moves and I would certainly welcome seeing her since she is always a pleasure to see. Sincerely, Zechariah Loo M.D., F.A.C.C. Dictated but not proofread DICT: 03/03/2019 ONEAL: [email or web address] 03/03/2019 [id number] [email or web address] Not available 03/03/2019 15:40:22 03/31/2019 03/31/2019 IMPRESSIONS/CLIN I DAVID RESUME: 1. Hypertension - suboptimal control. 2. History of palpitations that have largely resolved. 3. Calcium score of 159 in calendar year 2015, which is 75th percentile. She had a normal stress echo at that time. 4. Diabetes - treated and controlled by Dr. Adams. 5. Hyperlipidemia - treated and well controlled by Dr. Adams. 6. Positive family history for heart disease. Her mother had a small [place] and states her brother has an ICD and other family members have hyperlipidemia and hypertension. 7. History of , cataract surgery and colon polyps. 8. The patient retired in October of 2018 and really has a low stress existence right now. She has a 24-year-old daughter who has graduated from medical school and is doing a residency in [place] with lots of endodontics involved. A 26-year-old daughter has a master's degree in public health and is now working for the [employer] in [place], [place]. 9. Paulina is going to be moving back to her home in [place] sometime in March of 2018. 10. Hypertension, good control as of 03/31/18 on 40 mg of lisinopril daily. 11. 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 RECOMMENDATIONS: 1. Continue lisinopril 40 mg daily. 2. Stress echo today was completely normal. She exercised to 10.3 METS and there was no ischemia, so I reassured her that in spite of an elevated calcium score, there is no evidence for ischemia. Right now, I recommend that we continue her lisinopril. I will see her back in a year, primarily for a blood pressure check. She will not need another stress test until at least 2021 and perhaps even 2022 if she is asymptomatic. She is probably going to continue to come to our office in spite of the fact that she will be living out of state and I will be delighted to see her. She is really a delightful woman and it is a pleasure to take care of her and I would like to thank Dr. Adams for the opportunity to do so, Sincerely, Zechariah Loo M.D. Cinthya. Dictated, but not proofread. DICT: 03-31-2019; TRANS: LLJ #[id number] 03-31-2019 [id number] CC: Tami Adams M.D. 8-[address] [place] [id number] [email or web address] Not available 03/31/2019 14:52:59 Plan of Treatment Reminders Order Date Submit Date Provider Last Modified By Organization Details Last Modified Time Details Appointments None recorded. Lab hemoglobin A1C, fingerstic k 2019 020 [email or web address] [facility] - In Office Orders (For Internal Use Only), [address] [place], [address], 0 09:33:03 hemoglobin A1C, fingerstic k 2018 019 ANABELLE Am[facility] - In Office Orders (For Internal Use Only), [address] [place], [address], 9 16:07:05 Referral None recorded. Procedures stress echocardio gram with doppler color flow (PROC) 2019 020 [email or web address] Amg - In Office Orders (For Internal Use Only), [address] [place], [address], 0 12:06:27 stress echocardio gram with doppler color flow (PROC) 2018 020 ANABELLE Not available 0 11:35:22 Surgeries None recorded. Imaging None recorded. Medication Orders Trulicity 0.75 mg/0.5 mL subcutaneo us pen injector 2019 020 INTERFACE [id number], [address], [address], 0 09:33:05 metformin 500 mg tablet 2019 020 INTERFACE [id number], [address], [address], 0 09:33:05 metoprolol succinate ER 25 mg tablet,ext ended release 24 hr 2018 019 [email or web address] [id number], [address], [address], 0 11:34:41 Trulicity 0.75 mg/0.5 mL subcutaneo us pen injector 2018 019 INTERFACE [id number], [address], [address], 9 11:02:17 metformin 500 mg tablet 2018 019 INTERFACE [id number], [address], [address], 9 11:02:17 Patient TargetsNo targets recorded. Patient Instructions Encounter Date Encounter Id Patient Instructions Last Modified By Organization Details Last Modified Time 01/27/2019 [id number] type 2 diabetes: care instructions [email or web address] Not available 01/27/2019 11:02:15 05/06/2019 [id number] type 2 diabetes: care instructions [email or web address] Not available 05/06/2019 09:33:03 Reason for Referral None Reported. Results Created Date Observation Date Name Description Value Unit Range Abnormal Flag Note LastModifiedBy Organization Detail LastModifiedTime 05/06/19 20 05/06/2019 hemog lobin A1C, finge rstic k HbA1C 6.7 Not Available [facility] - In Office Orders (For Internal Use Only) [address] [place], [address], 05/06/2019 09:17:01 01/23/20 19 01/22/2019 lipid panel , serum trig 80 mg/dL 38-150 Jackie l:<15 0 Borde rline :150- 199 High: 200-4 99 Very High: >or=5 00 Not Available [facility] - Lab [address], [place], [address], 01/22/2019 15:24:03 01/23/2001/22/2019 lipid panel , serum chol 127 mg/dL 128-20 0 low NCEP Guide lines : <200 Rosy able 200-2 39 Borde rline High >240 High Not Available [facility] - Lab [address], [place], [address], 01/22/2019 15:24:03 01/23/20 19 01/22/2019 lipid panel , serum DHDL 42 mg/dL 40-85 HDL NCEP Guide lines <40.0 = Low 40 to >/=60 Jackie l Not Available [facility] - Lab [facility] [address] [address], [place], [address], 01/22/2019 15:24:03 01/23/20 19 01/22/2019 lipid panel , serum LDL.(calc.) 69 mg/dL 0-100 LDL NCEP Guide lines : <100. 0 Optim al 100-1 29 Near optim al 130-1 59 Borde rline High 160-1 89 High >/= 190 Very High Not Available Amg - Lab [facility] [address] [address], [place], [address], 01/22/2019 15:24:03 01/23/20 19 01/22/2019 lipid panel , serum VLDL (calc.) 16.0 mg/dL 7.6-29 .8 Not Available Am[facility] - Lab [facility] [address] [address], [place], [address], 01/22/2019 15:24:03 01/23/20 19 01/22/2019 lipid panel , serum chol/DHDL 3.02 ratio 1.00-5 .00 Not Available Amg - Lab [facility] [address] [address], [place], [address], 01/22/2019 15:24:03 01/23/20 19 01/22/2019 CMP, serum or plasm a Na 139.0 mmol/ L 135.0- 145.0 Not Available Amg - Lab [facility] [address] [address], [place], [address], 01/22/2019 15:24:06 01/23/20 19 01/22/2019 CMP, serum or plasm a K 4.1 mmol/ L 3.5-5. 2 Not Available [facility] - Lab [address] [address], [place], [address], 01/22/2019 15:24:06 01/23/20 19 01/22/2019 CMP, serum or plasm a cL 101 mmol/ L 98-109 Not Available [facility] - Lab [address] [facility] [address], [place], [address], 01/22/2019 15:24:06 01/23/20 19 01/22/2019 CMP, serum or plasm a eco2 27 mmol/ L 22-31 Not Available [facility] - Lab [address] [facility] [address], [place], [address], 01/22/2019 15:24:06 01/23/20 19 01/22/2019 CMP, serum or plasm a glu 85 mg/dL 70-99 Impai red, Fasti n-1 25 Diabe tone, Two Fasti ng Speci mens: >125 Non-f astin g, 75 g. load: <140 Not Available [facility] - Lab [address] [facility] [address], [place], [address], 01/22/2019 15:24:06 01/23/20 19 01/22/2019 CMP, serum or plasm a BUN 12 mg/dL 7-23 Not Available [facility] - Lab [address] [place] [address], [place], [address], 01/22/2019 15:24:06 01/23/20 19 01/22/2019 CMP, serum or plasm a creat 0.60 mg/dL 0.60-1 .30 IDMS trace able Not Available [facility] - Lab [address] [place] [address], [place], [address], 01/22/2019 15:24:06 01/23/20 19 01/22/2019 CMP, serum or plasm a eGFR >60 >60 For Afric an Ameri can patie nts, multi ply resul ts of 60 or lower by 1.21 Not Available [facility] - Lab [address] [place] [address], [place], [address], 01/22/2019 15:24:06 01/23/20 19 01/22/2019 CMP, serum or plasm a Ca 9.5 mg/dL 8.4-10 .3 Not Available [facility] - Lab [address] [place] [address], [place], [address], 01/22/2019 15:24:06 01/23/20 19 01/22/2019 CMP, serum or plasm a TP 7.2 g/dL 6.3-8. 2 Not Available [facility] - Lab [address] [facility] [address], [place], [address], 01/22/2019 15:24:06 01/23/20 19 01/22/2019 CMP, serum or plasm a tbil 0.5 mg/dL 0.2-1. 3 Not Available [facility] - Lab [address] [facility] [address], [place], [address], 01/22/2019 15:24:06 01/23/20 19 01/22/2019 CMP, serum or plasm a alb 4.2 g/dL 3.6-5. 3 Not Available [facility] - Lab [address] [place] [address], [place], [address], 01/22/2019 15:24:06 01/23/20 19 01/22/2019 CMP, serum or plasm a AST 24 U/L 14-36 Not Available [facility] - Lab [address] [place] [address], [place], [address], 01/22/2019 15:24:06 01/23/20 19 01/22/2019 CMP, serum or plasm a ALT 32 U/L 9-52 Not Available [facility] - Lab [address] [facility] [address], [place], [address], 01/22/2019 15:24:06 01/23/20 19 01/22/2019 CMP, serum or plasm a alk P 87 U/L 38-126 Not Available [facility] - Lab [address] [facility] [address], [place], [address], 01/22/2019 15:24:06 01/28/20 19 01/27/2019 hemog lobin A1C, finge rstic k HbA1C 6.8 Not Available [facility]g - In Office Orders (For Internal Use Only) [address] [facility], [place], [address], 01/27/2019 10:50:40 03/31/19 20 stres s echoc ardio gram with doppl er color flow (PROC ) No observ ation record ed. [email or web address] Not Available 2019 16:09:15 04/01/19 20 03/31/2019 tereza levine* No observ ation record ed. [email or web address] Not Available 2019 09:51:47 Result Notes None recorded. Problems Name Problem SNOMED Code Status Onset Date Resolution Date Notes Provider Name and Address Organization Details Recorded Time Benign essentia l hyperten mickey 5812513 Completed 01/17/2015 Tami Adams MD [address], [address], [place], [address], [place] [facility] [place] [facility] [place] 6 11:06:35 Hyperlip idemia 40043804 Active Tami Adams MD [address], [address], [place], [address], [place] [facility] [place] 6 09:52:45 Anemia 503753210 Completed 08/20/2016 Tami Adams MD [address], [address], [place], [address], [place] [facility] [place] [facility] [place] 7 21:40:37 Heart murmur 20084690 Completed 01/17/2015 Tami Adams MD [address], [address], [place], [address], [place] [facility] [place] 6 11:06:35 Pure hypercho lesterol emia 891078463 Completed 201301/17/2015 LAST ASSESSED: 06 SEP 2013 9:40PM; TYPE: CHRONIC; IDENTIFIE D BY: KAYCE PARK; LAST EDITED: 06 SEP 2013 9:40PM; STATUS: ACTIVE Tami Adams MD [address], [address], [place], [address], [place] [facility] [place] [facility] [place] 7 16:03:54 Left lower quadrant pain 847836116 Completed 01/17/2015 Tami Adams MD [address], [address], [place], [address], [place] [facility] [place] [facility] [place] 6 11:06:35 Disorder of bone and articula r cartilag e 661447308 Completed 01/17/2015 osteopeni a Tami Adams MD [address], [address], [place], [address], [place] 6 11:06:35 Proteinu keli 35002105 Completed 201301/17/2015 LAST ASSESSED: 17 SEP 2013 8:39AM; TYPE: CHRONIC; LAST EDITED: 17 SEP 2013 8:39AM; STATUS: ACTIVE Tami Adams MD [address], [address], [place], [address], [place] [facility] [place] 6 11:06:35 Type 2 diabetes mellitus 78393233 Completed 04/17/2017 Tami Adams MD [address], [address], [place], [address], [place] [facility] [place] [facility] [place] 8 16:22:25 Genitour inary pain 469971932 Completed 01/17/2015 bladder Tami Adams MD [address], [address], [place], [address], [place] [facility] [place] [facility] [place] 6 11:06:35 Vitamin D deficien cy 44857578 Active Tami Adams MD [address], [address], [place], [address], [place] [facility] [place] [facility] [place] 6 09:52:45 Atrophic vaginiti s 12701047 Active Tami Adams MD [address], [address], [place], [address], [place] [facility] [place] [facility] [place] 6 11:06:35 Benign neoplasm of colon 17647193 Completed 201301/17/2015 LAST ASSESSED: 13 OCT 2013 8:45AM; TYPE: CHRONIC; IDENTIFIE D BY: KAYCE PARK; LAST EDITED: 13 OCT 2013 8:45AM; STATUS: ACTIVE Tami Adams MD [address], [address], [place], [address], [place] [facility] [place] [facility] [place] 6 11:06:35 Knee pain Completed 01/17/2015 Tami Adams MD [address], [address], [place], [address], [place] [facility] [place] [facility] [place] 6 11:06:35 Polyp of colon 30023957 Active Tami Adams MD [address], [address], [place], [address], [place] [facility] [place] [facility] [place] 6 11:06:35 Essentia l hyperten mickey 73913487 Active Tami Adams MD [address], [address], [place], [address], [place] [facility] [place] [facility] [place] 6 09:52:45 Iron deficien cy anemia 19104420 Active Tami Adams MD [address], [address], [place], [address], [place] [facility] [place] 6 11:06:35 Left sided abdomina l pain 930633527 Active Tami Adams MD [address], [place], [address], [place] [facility] [place] [facility] [place] 6 11:06:35 Vaginiti s 13889016 Active Tami Adams MD [address], [place], [address], [place] [facility] [place] [facility] [place] 6 11:06:35 Benign essentia l hyperten mickey 1429434 Active Tami Adams MD [address], [address], [place], [address], [place] [facility] [place] [facility] [place] 6 11:06:35 Pure hypercho lesterol emia 972082049 Completed 04/16/2016 Tami Adams MD [address], [place], [address], [place] [facility] [place] [facility] [place] 7 16:03:54 Low back pain 087103503 Active Tami Adams MD [address], [address], [place], [address], [place] [facility] [place] 6 09:52:45 Gynecolo gic examinat ion Active 2016 Iliana Duran MD [address], [place], [address], [place] [facility] [place] 7 13:47:15 Type 2 diabetes mellitus without complica tion 278968975 Active 2017 Tami Adams MD [address], [place], [address], [place] [facility] [place] 8 16:22:18 Coronary arterios clerosis 57135396 Active 2017 Tami Adams MD [address], [place], [address], [place] [facility] [place] [facility] [place] 8 17:22:28 Problem Notes None recorded. Procedures Surgical History Date Name Laterality Status Provider Name and Address Organization Details Recorded Time 12/17/19 13 Cataract Surgery completed Kayce Park MD [address], [address], [place], [address], [place] [facility] 01/27/2014 16:54:43 03/05/20 12 Colonoscopy completed Liliane Hsu [place] [facility] 07/20/2015 14:47:43 Caesarean Section completed Antonella Pedroza LPN [place] [facility] 04/23/2016 13:33:27 Tonsillectomy/A denoidectomy completed Masha Bennett CMA [place] [facility] 12/11/2013 14:26:54 Imaging Results Imaging Date Name Status LastModified by Organization Details LastModified Time 03/31/2019 stress echocardiogram with doppler color flow (PROC) completed [email or web address] Information not available 03/31/2019 16:09:15 03/31/2019 treadmill* completed hplake Information no t available 04/01/2019 09:51:47 Procedure Notes None recorded. Medical Equipment None Reported. Allergies No known drug allergies Medications Name Sig Start Date Stop Date Status Note LastModified by Organization Details LastModified Time metformin 500 mg tablet TAKE 2 TABLETS BY MOUTH TWICE A DAY 2020 active Not Available Not Available Not Avai lable atorvastat in 20 mg tablet Take 1 tablet every day by oral route. 05/06 completed Not Available Not Available Not Available triazolam 0.25 mg tablet 01/26 completed Not Available Not Available Not Available ofloxacin 0.3 % eye drops active Not Available Not Available Not Available hydrocodon e 5 mg-acetami nophen 325 mg tablet active Not Available Not Available No t Available metronidaz ole 0.75 % (37.5 mg/5 gram) vaginal gel INSERT 1 APPLICAT OR(S)FUL EVERY DAY BY VAGINAL ROUTE AT BEDTIME FOR 7 DAYS. active Not Available Not Available No t Available metronidaz ole 250 mg tablet 01/17 completed Not Available Not Available Not Available naproxen 250 mg tablet active Not Available Not Available Not Available clindamyci n HCl 150 mg capsule active Not Available Not Available N ot Available ketorolac 0.5 % eye drops active Not Available Not Available Not Available terbinafin e HCl 250 mg tablet 1 tab by mouth daily active Not Available Not Available No t Available prednisolo ne acetate 1 % eye drops,susp ension active Not Available Not Available Not Available pravastati n 10 mg tablet TAKE 1 TABLET BY MOUTH EVERYDAY AT BEDTIME 2020 active Not Available Not Available Not Artemio moura OneTouch Ultra Test strips USE ONE TEST STRIP TWICE DAILY 04/16 completed Not Available Not Available Not Available ferrous sulfate 325 mg (65 mg iron) tablet TAKE 1 TABLET(S ) 3 TIMES A DAY BY ORAL ROUTE. active Not Available Not Available No t Available lisinopril 10 mg tablet TAKE 1 TABLET BY MOUTH DAILY 03/31 completed Not Available Not Available Not Available amoxicilli n 250 mg capsule 01/17 completed Not Available Not Available Not Available metoprolol succinate ER 25 mg tablet,ext ended release 24 hr Take 1 tablet every day by oral route. 03/31 completed Not Available Not Available Not Available ergocalcif aracelis (vitamin D2) 1,250 mcg (50,000 unit) capsule TAKE ONE CAPSULE BY MOUTH WEEKLY DIRECTED 01/17 completed Not Available Not Available Not Available lisinopril 40 mg tablet TAKE 1 TABLET BY MOUTH EVERY DAY pt needs appt for addition al refills please 2020 active Not Available Not Available Not Avai lable Premarin 0.625 mg/gram vaginal cream Insert 0.5 g twice a week by vaginal route. 2014 active Sample Qty: 4. Not Available Not Available Not Available OneTouch UltraSoft Lancets active Not Available Not Available Not Available calcium active Not Available Not Avail able Not Available Aspir-81 1 tablet by mouth daily active Not Available Not Available No t Available BD Ultra Fine Lancets 04/16 completed Not Available Not Available Not Available MoviPrep 100 gram-7.5 gram-2.691 gram oral powder packet 01/17 completed Not Available Not Available Not Available Janumet 50 mg-1,000 mg tablet TAKE 1 TABLET TWICE A DAY WITH MEALS 02/21 completed Not Available Not Available Not Available Durezol 0.05 % eye drops 01/17 completed Not Available Not Available Not Available Calcium 500 mg + D (D3) 3.125 mcg (125 unit) tablet Take by oral route. 01/17 completed Not Available Not Available Not Available Suprep Bowel Prep Kit 17.5 gram-3.13 gram-1.6 gram oral solution USE DIRECTED ON PACKAGE, MIX WITH GATORADE active Not Available Not Available No t Available Vitamin D3 50 mcg (2,000 unit) capsule Take 1 capsule every day by oral route. 2016 active Not Available Not Available Not Avai lable Janumet XR 50 mg-1,000 mg tablet,ext ended release TAKE 1 TABLET(S ) TWICE A DAY BY ORAL ROUTE WITH MEALS. 04/16 completed Not Available Not Available Not Available Vitamin D3 100 mcg (4,000 unit) capsule Take by oral route qd 04/23 completed Not Available Not Available Not Available Multi Vitamin Take 1 tablet po daily active Not Available Not Available No t Available Trulicity 0.75 mg/0.5 mL subcutaneo us pen injector INJECT 0.5 ML EVERY WEEK BY SUBCUTAN EOUS ROUTE DIRECTED . active Not Available Not Available No t Available FreeStyle Karen 14 Day [place] USE DIRECTED . 04/16 completed Not Available Not Available Not Available FreeStyle Karen 14 Day Sensor kit CHANGE EVERY 14 DAYS 2019 active Not Available Not Available Not Avai lable Vitals Date Recorded Body height Body mass index (BMI) Body weight Heart rate Systolic blood pressure Diastolic blood pressure Provider Name and Address Organization Details Last Updated DateTime 9 175.26 cm 24.3 kg/m2 77140.3 g 90 /min 124 mm[Hg] 70 mm[Hg] Estrellita ANDRADE [place] [facility] 9 10:29:32 Date Recorded Body height Body mass index (BMI) Body weight Heart rate Systolic blood pressure Diastolic blood pressure Provider Name and Address Organization Details Last Updated DateTime 9 175.26 cm 24.4 kg/m2 73764.7 4 g 90 /min 144 mm[Hg] 68 mm[Hg] Jeison Curry [place] [facility] 9 10:02:50 Date Recorded Body height Body mass index (BMI) Body weight Oxygen saturation Oxygen saturation in Arterial blood by Pulse oximetry Heart rate Systolic blood pressure Diastolic blood pressure Provider Name and Address Organization Details Last Updated DateTime 9 175.26 cm 24 kg/m2 52600.1 2 g 98 % 98 % 86 /min 140 mm[Hg] 80 mm[Hg] Sameer Morales [place] [facility] 9 11:44:58 Date Recorded Body height Body mass index (BMI) Body weight Heart rate Oxygen saturation Oxygen saturation in Arterial blood by Pulse oximetry Systolic blood pressure Diastolic blood pressure Provider Name and Address Organization Details Last Updated DateTime 0 175.26 cm 24.1 kg/m2 01776.5 6 g 97 /min 98 % 98 % 102 mm[Hg] 66 mm[Hg] Devi Watters [place] [facility] 0 11:34:08 Date Recorded Systolic blood pressure Diastolic blood pressure Provider Name and Address Organization Details Last Updated DateTime 03/31/2019 110 mm[Hg] 70 mm[Hg] Zechariah Loo MD [address] [place] [address], [address], [place], [address], [place] [facility] 03/31/2019 11:47:44 Date Recorded Body height Body mass index (BMI) Body weight Heart rate Systolic blood pressure Diastolic blood pressure Provider Name and Address Organization Details Last Updated DateTime 0 175.26 cm 24.1 kg/m2 03895.5 6 g 79 /min 136 mm[Hg] 70 mm[Hg] Sarai Castro [facility][note 3] 0 09:12:22 Social History Question Answer Notes LastModified by Organizat Mi-[employer] Details LastModified Time Tobacco Smoking Status Former Smoker quit 1988 Kayce Park MD [address] [place] [address], [address], [place], [address], [place] [facility] 01/27/2014 16:53:53 What Is Your Level Of Alcohol Consumption? Occasional Rare Information not available 01/27/2014 What Is Your Level Of Caffeine Consumption? Occasional Information not available 01/27/2014 What Type Of Diet Are You Following? DIABETIC Information not available 01/27/2014 Which Illicit Or Recreational Drugs Have You Used? Denied Information not available 12/11/2013 Do You Or Have You Ever Used E-cigarettes Or Vape? Never Used Electronic Cigarettes Information not available 01/26/2019 What Is Your Occupation? Full-time Information not available 12/11/2013 Marital Status Informatio n not available 01/27/2014 What Was The Date Of Your Most Recent Tobacco Screening? 07/16/2018 Information not available 10/10/2018 Seat Belts Used Routinely Yes Information not available 01/27/2014 Smoke Alarm In Home Yes Information not available 01/27/2014 Do You Or Have You Ever Used Smokeless Tobacco? Never Used Smokeless Tobacco Information not available 01/26/2019 How Many Years Have You Smoked Tobacco? 5 Information not available 01/01/2017 Sex: Female Functional Status Question Answer Note LastModified by Organizat ion Details LastModified Time What is your exercise level? Occasional walks 30 min 4 times a week Information not available 01/27/2014 Mental Status None recorded. Family History Relationship Description Onset Age of this Age Resolved Age Notes LastModified by Organization Details LastModified Time Father Malignant tumor of lung 74 veastes Not available 2015 10:57:51 Father Diabetes mellitus veastes Not available 2015 10:57:51 Mother Diabetes mellitus veastes Not available 2015 10:57:51 Mother Multiple myeloma 82 veastes Not available 2015 10:57:51 Sister Diabetes mellitus veastes Not available 2015 10:57:51 Brother Diabetes mellitus veastes Not available 2015 10:57:51 Medical History Condition Response diabetes mellitus Y hyperlipidemia Y anemia Y high blood pressure Y Gynecological History Statement/Question Response Abnormal Pap Y (do not use)Date and Result of Last Mamm ogram 02/27 (do not use)Date and Result of Last Pap 2012 Date and Result of Last Bone Density 201 3 Age at Menarche 15 (do not use) Date and Result of Last Col onoscopy 2011 Sexually Active? Y Obstetrics History GPAL:G 3 P 2 0 1 2 Type Value Full Term 2 Spontaneous 1 Living 2 Total 3 Immunizations Vaccine Type Date Status Note Provider Nam e and Address Organization Details Recorded Time Influenza, split virus, trivalent, PF 7 completed Not Available [facility] 04/05/2019 03:21:26 Tdap 8 completed Not Available [facility] 04/04/2019 05:29:45 Influenza, MDCK, quadrivalent, PF 8 completed Not Available [facility] 04/04/2019 03:06:44 Influenza, split virus, quadrivalent, PF 9 completed Not Available [facility] 04/04/2019 02:50:37 influenza, unspecified formulation 4 completed Belinda marquis, [place] - [facility] 01/27/2014 16:31:08 Influenza, split virus, trivalent, preservative 5 completed Not Available [facility] 04/04/2019 06:10:19 Influenza, split virus, quadrivalent, PF 6 completed Not Available [facility] 04/18/2019 02:15:16 Past Encounters Encounter ID Performer Location Encounter Start Date Encounter Closed Date Diagnosis/Indication Diagnosis SNOMED-CT Code Diagnosis ICD10 Code Diagnosis Note [id number] Alysha Madsen IND_SMG_O GB_DOC [address] [facility] [address] 12/31/2013 06:57:47 12/31/2013 08:03:05 Gynecologic examination 49800061 Atrophic vaginitis 15798699 [id number] Megha Pisano zFNL_IND_ SMG_ABL_D [place] [address], [address] [facility] [place] [address] 01/27/2014 15:33:41 01/27/2014 17:42:20 Benign essential hypertension 3308443 Type 2 devyn betes mellitus 17218879 Hyperlipidemia 73294504 Anemia 184914886 [id number] Anastasia Condon zFNL_IND_ SMG_ABL_D [place] [address], [address] [facility] [place] [address] 06/08/2014 10:22:44 06/08/2014 12:03:42 Benign essential hypertension 1021374 Type 2 devyn betes mellitus 16710035 Benign bisi plasm of colon 64606059 Pure hypercholesterolemia 579154313 Long-term drug therapy 180991923 Vitamin D deficiency 30557852 Knee pain 81991009 Anemia 438410923 Polyp of colon 00952347 [id number] IND_SMG_C [facility] [address], [address] [place] [address] 08/25/2012 00:00:00 [id number] IND_SMG_[facility] [address], [address] [place] [address] 02/04/2013 00:00:00 [id number] IND_SMG_[facility] [address], [address] [place] [address] 06/03/2013 00:00:00 [id number] IND_SMG_C [facility] [address], [address] [place] [address] 08/07/2013 00:00:00 [id number] IND_SMG_[facility] [address], [address] [place] [address] 10/13/2013 00:00:00 [id number] Sarai Ryan zFNL_IND_ [place] [address] [place] [address] 01/17/2015 13:01:29 01/17/2015 14:47:00 Vitamin D deficiency 08333709 E55.9 Diabetes mellitus 363414 09 E11.9 last A1C 6.3%, well-contr olled. cont current regimen. start daily baby asa. Essential hypertension 87781355 I10 well-contr olled. cont current regimen. Anemia 389448070 D64.9 had colonoscop y done 07/2014- benign polpys found. never put on iron supp. will recheck CBC. Administra tion of influenza vaccine 72357238 Z23 Screening for malignant neoplasm of breast 098182208 Z12.31 Z12.39 Hyperlipidemia 77881342 E78.5 pt needs FLP rechecked as part of her work biometrics screening. cont statin. [id number] Alma Morales IND_SMG_O GB_DOC [address] [place] [address] 02/17/2015 08:45:34 02/17/2015 10:21:32 Gynecologic examination 43600575 Z01.419 Z01.411 Atrophic vaginitis 25322 000 N95.2 [id number] Tami Adams MD zCLSD_IND _SMG_MAM_ DOC [address] [place] [address] 05/31/2015 07:52:48 05/31/2015 09:00:49 Vitamin D deficiency 76577752 E55.9 ck labs next Diabetes mellitus 300304 09 E11.9 last A1C 6.3%, well-contr olled. cont current regimen. start daily baby asa. Essential hypertension 00077528 I10 well-contr olled. cont current regimen-ck labs Anemia 462837338 D64.9 had colonoscop y done 07/2014- benign polpys found. never put on iron supp. will recheck CBC. Hyperlipidemia 43072461 E78.5 ck labs-rec heart scan Vaginitis 82739491 N76.0 try metrogel cream Left sided abdominal pain 116492085 R10.9 mild-assoc iated w/ vag d/c w/ odor-exam nl-rec reeval after Metrogel vag cream [id number] Tami Adams MD zCLSD_IND _SMG_MAM_ DOC [address] [facility] [place] [address] 12/14/2015 10:45:29 12/14/2015 11:50:31 Vitamin D deficiency 80987227 E55.9 ck labs next-begin Vit D3 4000 u qd otc Diabetes mellitus 014609 09 E11.9 A1C up to 6.9-has gained wt-long discussion on diet/exerc ise Essential hypertension 07437098 I10 well-contr olled. cont current regimen Anemia 265728859 D64.9 had colonoscop y done 07/2014- benign polpys found. Better-thi nks was diet related as was having dental work done previously and not able to eat much. 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 Sees FISH SEINER. Recommend monthly self breast exams and annual mammograms .Had flu shot. Screening for malignant neoplasm of rectum 304259506 Z12.12 Check FOBT. Type 2 devyn betes mellitus 52216387 E11.9 A1c is worse at 8.1. Long discussion with patient regarding diet and exercise. Recommend decrease carbs and sweets and increase steps per day to 7500. We will see patient back in 3-4 months for repeat labs and office visit. Check microalbum in.Recomme nd yearly ophthalmol ogy exam. Hyperlipidemia 57501305 E78.5 heart scan 159--on statin/asa -Saw Dr. Loo and had normal stress test. To follow-up in February this year. Essential hypertension 90576052 I10 Stable. Polyp of colon 76311132 K63.5 Has both tubular and hyperplast ic polyps. To be rechecked in July [address] [place]. Vitamin D deficiency 347 66968 E55.9 Recommend decrease vitamin D3 4000 units to every other day until current supply is finished and then change to 2000 units per day Pain in coccyx 26979050 M53.3 recommend donut ring to sit on at work [id number] Tami Adams MD zCLSD_IND _SMG_MAM_ DOC [address] [facility] [address] [address] [facility] [place] [address] 08/28/2016 08:34:52 08/28/2016 09:44:49 Benign essential hypertension 2418681 I10 Stable. Type 2 devyn betes mellitus 19582435 E11.9 A1c Improved from 8.1-6.9. Continue diet and exercise efforts. Refer to diabetic education at [facility]. Hyperlipidemia 28162369 E78.5 heart scan 159--on statin/asa -Saw Dr. Loo and had normal stress test. To follow-up in February this year.Kendra pollard [id number] Tami Adams MD zCLSD_IND _SMG_MAM_ DOC [address] [facility] [address] [facility] [place] [address] 01/01/2017 11:28:30 01/01/2017 12:32:24 Benign essential hypertension 5260612 I10 Stable. Type 2 devyn betes mellitus 47866036 E11.9 A1c Increased to 7.3 up from 6.9.. Continue diet and exercise efforts. Refer to diabetic education at [facility]. Hyperlipidemia 05237667 E78.5 heart scan 159--on statin/asa -Saw Dr. Loo and had normal stress test. To follow-up in February this year.Kendra pollard [id number] Zechariah Loo MD IND_SMG_M OB_DOC [address] [place] [address] 01/31/2017 08:35:13 01/31/2017 09:48:59 Intermittent palpitations 185253732 R00.2 [id number] Tami Adams MD zCLSD_IND _SMG_MAM_ DOC [address] [facility] [place] [address] 05/07/2017 08:17:50 05/07/2017 09:36:44 Adult health examination 741528656 Z00.00 Done. Sees FISH SEINER. Recommend monthly self breast exams and annual mammograms .Had flu shot.Tdap given today. Benign ess ential hypertension 3478847 I10 Stable. Type 2 devyn betes mellitus 82531410 E11.9 A1c Increased to 7.7 up from 7.3.. Went to diabetic education and feels like she is eating better and walking more. Still has a lot of stress. Long discussion on options. Discussed possibilit y of seeing endocrinol ogluzma versus continuing current efforts and rechecking her A1c in 3 months with the thought that if her A1c is not significan tly improved at that time we will either refer to endocrinol ogy or add Trulicity. Hyperlipidemia 15541527 E78.5 heart scan 159--on statin/asa -Saw Dr. Loo and had normal stress test. Vitamin D deficiency 347 65578 E55.9 Stable. Polyp of colon 98385743 K63.5 Has both tubular and hyperplast ic polyps. To be rechecked in July [address] [place]. Active or passive immunization 763924015 Z23 Tdap today. [id number] Rosalinda Delaney MD IND_SMG_O GB_DOC [address] [facility] [place] [address] 07/25/2017 09:14:43 07/25/2017 10:21:22 Gynecologic examination 53676518 Z01.419 Pt has dense breast tissue and would like to consider limited Breast MRI in January. Pt is going to get her appt for colpo. [id number] Tami Adams MD zCLSD_IND _SMG_MAM_ DOC [address] [facility] [place] [address] 11/21/2017 14:52:19 11/21/2017 15:34:04 Benign essential hypertension 8856714 I10 Stable. Hyperlipidemia 58418890 E78.5 heart scan 159--on statin/asa -Saw Dr. Loo and had normal stress test. Vitamin D deficiency 347 66114 E55.9 Stable. Polyp of colon 36588679 K63.5 Has both tubular and hyperplast ic polyps. To be rechecked in August [address] Washington [facility] type 2 diabetes mellitus 439741887 E11.65 A1c continues to rise. Went to diabetic education and feels like she is eating well and is walking every day. Long discussion on options. Would like to see endocrinol ogy. Referral done. [id number] Favian Randolph MD IND_SMG_E NDO_Carme lSpcClini c_DOC [address] [place] [address] 12/20/2017 14:52:29 12/23/2017 09:28:44 Uncontrolled type 2 diabetes mellitus 054510398 E11.65 Extensive perusal of EMR done. Inputs noted from other specialiti es. Also perusal of prior lab work done. Lab values analyzed along with other comorbidit ies and medication profile Counselled on diet and exercise. Continue basal bolus insulin regime Continue Metformin 1000 mg BID GLP1 agonist considered . Would START TRULICITY 0.75 mg weekly Accucheks 6 times a day ac and hs Counselled on hypoglycem ia Reassess in 12 weeks. Essential hypertension 69968213 I10 controlled Dyslipidem ia due to type 2 diabetes mellitus 7701479570 02 E78.5 continue pravastati n Vitamin D deficiency 347 67600 E55.9 CONTINUE SUPPLEMENT S [id number] Favian Randolph MD IND_SMG_E NDO_[facility]me [facility]pcClini c_DOC [address] [address] 03/27/2018 14:17:34 03/27/2018 16:10:58 Uncontrolled type 2 diabetes mellitus 504247519 E11.65 Extensive perusal of EMR done. Inputs noted from other specialiti es. Also perusal of prior lab work done. Lab values analyzed along with other comorbidit ies and medication profile Counselled on diet and exercise. Continue basal bolus insulin regime Increase Metformin to 1000 mg BID GLP1 agonist considered . Would START TRULICITY 0.75 mg weekly Accucheks 6 times a day ac and hs Counselled on hypoglycem ia Reassess in 12 weeks. Essential hypertension 87866119 I10 controlled Dyslipidem ia due to type 2 diabetes mellitus 8729657411 02 E78.5 continue pravastapina n Vitamin D deficiency 347 48132 E55.9 CONTINUE SUPPLEMENT S [id number] Zechariah Loo MD IND_SMG_M OB_DOC [address] [place] [facility] [place] [address] 04/16/2018 11:01:49 04/16/2018 11:35:25 Coronary arteriosclerosis 05454136 I25.118 Intermitte nt palpitations 312151089 R00.2 [id number] Favian Randolph MD IND_SMG_E NDO_Carme lSpcClini c_DOC [address] [facility], [address] [place] [address] 05/06/2018 08:27:46 05/09/2018 15:03:28 Uncontrolled type 2 diabetes mellitus 784144854 E11.65 Extensive perusal of EMR done. Inputs noted from other specialiti es. Also perusal of prior lab work done. Lab values analyzed along with other comorbidit ies and medication profile.Re view of karen CGM shows a range of blood sugars with blood sugars ranging from 92 to 165 with average of 129 mg% Counselled on diet and exercise. Continue basal bolus insulin regime Metformin to 1000 mg BID GLP1 agonist TRULICITY 0.75 mg weekly Accucheks 6 times a day ac and hs Counselled on hypoglycem ia Reassess in 12 weeks. Essential hypertension 12969892 I10 controlled Dyslipidem ia due to type 2 diabetes mellitus 3785590795 02 E78.5 continue gris sharpe [id number] Tami Adams MD zCLSD_IND _SMG_MAM_ DOC [address] [facility] [place] [address] 05/21/2018 09:01:21 05/21/2018 09:42:19 Adult health examination 266666748 Z00.00 Done. Sees FISH SEINER. Recommend monthly self breast exams and annual mammograms . Up-to-date on vaccines. Benign ess ential hypertension 2696184 I10 Stable. Type 2 devyn betes mellitus 78914148 E11.9 Per Endo. Improving. Hyperlipidemia 62876582 E78.5 heart scan 159--on statin/asa -Saw Dr. Loo and had normal stress test.Recom mend increase exercise to increase HDL. Vitamin D deficiency 347 57936 E55.9 Stable. Polyp of colon 14945597 K63.5 Has both tubular and hyperplast ic polyps. To be rechecked in [id number] MD ALBERTINA Ma_SMG_E NDO_Carme lSpcClini c_DOC [address] [place] [address] [place] [address] 6 07/16/2018 10:38:42 07/16/2018 11:29:16 Uncontrolled type 2 diabetes mellitus 527651373 E11.65 Extensive perusal of EMR done. Inputs noted from other specialiti es. Also perusal of prior lab work done. Lab values analyzed along with other comorbidit ies and medication profile. Counselled on diet and exercise. CGM shows a range of blood sugars with blood sugars ranging from 90 to 166 with average of 134 mg% Metformin to 1000 mg BID GLP1 agonist TRULICITY 0.75 mg weekly Accucheks 6 times a day ac and hs Counselled on hypoglycem ia Reassess in 12 weeks. Essential hypertension 41063900 I10 controlled Dyslipidem ia due to type 2 diabetes mellitus 6584903748 02 E78.5 continue pravastati n Vitamin D deficiency 347 99447 E55.9 CONTINUE SUPPLEMENT S [id number] Rosalinda Delaney MD zFNL_IND_ SMG_OGW_D OC [address] [facility], [address] [place] [address] 07/31/2018 08:16:31 07/31/2018 09:01:03 Gynecologic examination 26026876 Z01.419 vag d/c. Atrophic vaginitis 68908 000 N95.2 recommend Millenium ID or liqui-bead by [place]. [id number] MD ALBERTINA Ma_SMG_E NDO_Carme lSpcClini c_DOC [address] [place] [address] [place] [address] 6 10/21/2018 11:10:49 10/21/2018 12:23:57 Uncontrolled type 2 diabetes mellitus 056499947 E11.65 Extensive perusal of EMR done. Inputs noted from other specialiti es. Also perusal of prior lab work done. Lab values analyzed along with other comorbidit ies and medication profile. Counselled on diet and exercise. CGM karen shows a range of blood sugars with blood sugars ranging from 90 to 250 with average of 134 mg% Metformin to 1000 mg BID GLP1 agonist TRULICITY 0.75 mg weekly Accucheks 6 times a day ac and hs Counselled on hypoglycem ia Reassess in 12 weeks.COUN SELLED on exercise Essential hypertension 04208647 I10 controlled Dyslipidem ia due to type 2 diabetes mellitus 7879288788 02 E78.5 continue pravastati n Vitamin D deficiency 347 39449 E55.9 CONTINUE SUPPLEMENT S [id number] Tami Adams MD zCLSD_IND _SMG_MAM_ DOC [address] [facility] [address] [place] [address] 01/26/2019 14:58:24 01/26/2019 15:48:08 Benign essential hypertension 8768522 I10 Check blood pressure twice a day for 1 week and call the readings. Type 2 devyn betes mellitus 76262567 E11.9 Per Endo. Improving. Hyperlipidemia 64467630 E78.5 heart scan 159--on statin/asa -Saw Dr. Loo and had normal stress test.HDL has improved by 10 points with exercise! Vitamin D deficiency 347 89801 E55.9 Stable. Polyp of colon 71046270 K63.5 Has both tubular and hyperplast ic polyps. To be rechecked in -2022 Furuncle of buttock 1243 0003 L02.32 Recommend continue warm moist soaks several times a day to call the office if it does not continue to improve may need an antibiotic . Injury of toenail 649699 000 S99.922A Left great medial toenail painful ingrowing into the skin. Refer podiatry. [id number] Favian Randolph MD IND_SMG_E NDO_Carme lSpcClini c_DOC [address] [facility], [address] [place] [address] 01/27/2019 10:22:48 01/27/2019 11:12:47 Uncontrolled type 2 diabetes mellitus 523093572 E11.65 Extensive perusal of EMR done. Inputs noted from other specialiti es. Also perusal of prior lab work done. Lab values analyzed along with other comorbidit ies and medication profile. Counselled on diet and exercise. CGM karen shows a range of blood sugars with blood sugars ranging from 70 to 210 with average of 111 mg% Metformin to 1000 mg BID GLP1 agonist TRULICITY 0.75 mg weekly Accucheks 6 times a day ac and hs Counselled on hypoglycem ia Reassess in 12 weeks.COUN SELLED on exercise Essential hypertension 74934928 I10 controlled Dyslipidem ia due to type 2 diabetes mellitus 9620411487 02 E78.5 continue pravastati n Vitamin D deficiency 347 33830 E55.9 CONTINUE SUPPLEMENT S [id number] BEVERLEY FLORES PA-C IND_[facility]_M OB_DOC [address] [place] [facility] [place] [address] 02/03/2019 09:52:14 02/03/2019 10:49:22 Palpitations 15018419 R00.2 Essential hypertension 46842088 I10 [id number] Zechariah Loo MD IND_[facility]_M OB_DOC [address] [place] [facility] [place] [address] 03/03/2019 11:30:23 03/03/2019 12:11:02 Essential hypertension 32268106 I10 Atypical chest pain 1025 90057 R07.89 [id number] Zechariah Loo MD IND_[facility]_M OB_DOC [address] [place] [facility] [place] [address] 03/31/2019 11:12:27 03/31/2019 11:45:52 Essential hypertension 47556598 I10 Coronary arteriosclerosis 58476495 I25.118 Intermitte nt palpitations 600136259 R00.2 [id number] Favian Randolph MD IND_SMG_E NDO_Carme lSpcClini c_DOC [address] [facility] [address] [place] [address] 05/06/2019 08:08:35 05/06/2019 09:44:09 Uncontrolled type 2 diabetes mellitus 325820496 E11.65 Extensive perusal of EMR done. Inputs noted from other specialiti es. Also perusal of prior lab work done. Lab values analyzed along with other comorbidit ies and medication profile. Counselled on diet and exercise. CGM karen shows a range of blood sugars with blood sugars ranging from 70 to 210 with average of 111 mg% Metformin to 1000 mg BID GLP1 agonist TRULICITY 0.75 mg weekly Accucheks 6 times a day ac and hs Counselled on hypoglycem ia Reassess in 12 weeks.COUN SELLED on exercise Essential hypertension 59984015 I10 controlled Dyslipidem ia due to type 2 diabetes mellitus 7400117470 02 E78.5 continue pravastati n Vitamin D deficiency 347 79222 E55.9 CONTINUE SUPPLEMENT S Health Concerns Section Related Observation LastModified by Organization Detai ls LastModified Time None Recorded Concern Status LastModified by Organization Details LastModified Time None Recorded Advance Directives Directive None Recorded Payers Encounter Date Sequence Insurance Name Policy Number Policy Berger Covered Member ID Berger Member ID Guarantor Name 01/27/2019 1 [place] PREF[place] [id number] Paulina Frankel-Pu rnell [id number] Paulina Y [place] 02/03/2019 1 [place] [id number] Paulina Y Mal[place] rnell [id number] Paulina Y [place] 03/03/2019 1 [place] [id number] Paulina Y [place] r[place] [id number] Paulina Y [place] 03/31/2019 1 [place] [id number] Paulina Y [place] [id number] Paulina Y [place] 05/06/2019 1 [place] [id number] Paulina Y [place] [id number] Paulina Y [place] Notes Date Note Type Note Provider Name and Address Organization Details Recorded Time 01/27/2019 text/html Patient is a 63 year old who presents for follow up on type 2 diabetes mellitus. Since last visit sugars have been doing better.There is no symptomatic polyuria and polydipsia. No Hypoglycemic events were noted on glucometer readings. Since last visit no history of diabetic ketoacidosis (DKA). Her medication compliance has been good. Last visit with eye doctor was in 2018. No eye changes related to diabetes at that time. Also has dyslipidemia, vitamin D deficiency and HTN Currently no chest pain, no palpitations. No breathing difficulty, no cough. No focal sensory or motor deficit. No nausea,vomiting or diarrhoea. Favian Randolph MD [address] , [address], [place], [address], [facility] 01/27/2019 11:09:18 02/03/2019 text/html Ms. Javy willis is a very pleasant 63 year old seen in office today for increased blood pressure and bounding pulse. She initially did not notice any symptoms, but 1 week ago, an intimate partner noted that her heart was bounding while sleeping and while awake but resting. At that point, she began checking her BP at home with an electronic cuff and while at the pharmacy. Today, she shares logs with BPs 120s/70s-160-93, with most systolics ranging 140s-150s. Her heart rate is peaking at 90. She denies shortness of breath, dyspnea with exertion, and chest pain/tightness. She is more aware of increased herat rate with very minimal bounding sensation with activity, but again, her heart rates are below 100. She is active, waking ~10,000 steps per day, eats a low-sodium diet, and follows a diabetic diet. She plans to move back to her hometown in [place] in approximately one month. BEVERLEY FLORES PA-C [address], [address], [place], [address], [place] [facility] 02/10/2019 11:31:49 03/03/2019 text/html CHIEF COMPLAINT: Hypertension, abnormal calcium score. HISTORY OF PRESENT ILLNESS: Paulina is overall doing well. She recently saw Beverley for elevated blood pressure and Beverley started metoprolol 25 mg daily. Her blood pressure really has not changed and her blood pressures are commonly in the 150/95 range. Paulina does walk nearly 10,000 steps a day. She has no exertional chest discomfort but does have occasional vague chest discomfort when she is sitting around that is in the upper left chest and radiates to her left shoulder and forearm. She does not really notice exertional dyspnea. She denies orthopnea, PND or ankle edema and has no palpitations, syncope or near syncope. Energy level is fair. She does tolerate her medicines. She is puzzled why her blood pressure has elevated since the last time we saw her it was in good shape. Zechariah Loo MD [address] [place] [address], [address], [place], [address], [facility] 03/03/2019 15:55:11 03/31/2019 text/html CHIEF COMPLAINT: Hypertension. HISTORY OF PRESENT I am seeing Paulina for two reasons -- to followup for hypertension and also for a stress test. She is going to be moving soon and wanted to get these things done before she moves. She has no exertional chest pain or pressure. We increased her lisinopril first to 20 and then 40 mg daily. She has tolerated that with no problems at all. She has no orthopnea, PND or ankle edema. Zechariah Loo MD [address] [place] [address], Suite [facility], [place], [address], [facility] 04/01/2019 07:33:35 05/06/2019 text/html Patient is a 63 year old who presents for follow up on type 2 diabetes mellitus. Since last visit sugars have been doing better.There is no symptomatic polyuria and polydipsia. No Hypoglycemic events were noted on glucometer readings. Since last visit no history of diabetic ketoacidosis (DKA). Her medication compliance has been good. Last visit with eye doctor was in 2018. No eye changes related to diabetes at that time. Also has dyslipidemia, vitamin D deficiency and HTN Currently no chest pain, no palpitations. No breathing difficulty, no cough. No focal sensory or motor deficit. No nausea,vomiting or diarrhoea. Favina Randolph MD [address] [place] [address], [address], [place], [address], [facility] 05/06/2019 09:35:23 OBGyn Episode No OBEpisode recorded.
--- OUTSIDE RECORDS SUMMARY | 2024-05-29 10:23 | XMS_ITS | Patient Health Record ---
Author Organization [facility] Address [address] [place], [place] [id number] Care Team Providers Care Sediment Remediation Consultant Name Role Phone TERRY Valentin Unavailable [phone] Zane Schreiber Unavailable Unavailable GARTH BROOKS Unavailable [phone] Allergies No Known Allergies Reason For Referral No Information Medications Medication SIG (Take, Route, Frequency, Duration) Notes Start Date End Date Status Ciclopirox Olamine 0.77 % APPLY SMALL AM OUNT TO FUNGAL TOENAILS 1-2X DAILY. External for 30 Days Active Farxiga 5 MG TAKE 1 TABLET BY YONNY TH EVERY DAY Oral for 90 Days Activ e Trulicity 0.75 MG/0.5ML INJECT 0.75 MG ( [...] DAY Oral for 90 Days Activ e Immunizations Vaccine Route Administration Date Status Comme nts Influenza, high dose seasonal Unknown 02/14/2023 Admini stered Vital Signs Height-cm 172.72 cm 07/29/2023 Weight-kg 77.11 kg 07/29/2023 Height 68.00 in 07/29/2023 Weight 170 lbs 07/29/2023 BMI 25.85 kg/m2 07/29/2023 Encounters Encounter Location Date Provider Diagnosis [facility] [address] [place], [place] [id number] 07/29/2023 GARTH BROOKS Tinea unguium B35.1 ; Pain in right toe(s) M79.674 ; Pain in left toe(s) M79.675 ; 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 Plan Of Treatment No Information Insurance Providers Payer Name Payer Address Payer Phone Subscriber Number Group Number Insured Name Patient Relationship to Insured Coverage Start Date Coverage End Date Medicare Part B [place] [address] [place] [address] [id number] LOGAN PLATA Self - patient is the insured [facility] [address] [address] [place], [place] [phone] [id number] LOGAN PLATA Self - patient is the insured
--- OUTSIDE RECORDS SUMMARY | 2024-05-29 10:24 | XMS_ITS | Clinical Summary ---
Author Organization [facility] Address [address] [place] [address] Care Team Providers Care House Supervisor Name Role Phone Unavailable Primary Care Provider Unavailabl e Source Comments [facility],non-owned Affiliates and Associated Physician Practices is amultiple site organization consisting of ambulatory clinics and hospital sitesin [place], [place], [place] and [place]. This disclosure is being madepursuant to the Care Everywhere program and may not contain all information available regarding this patient. Last updated 17.[facility] Immunizations Name Administration Dates Next Due INFLUENZA VACCINE, HIGH-DOSE , QUADR. (FLUZONE HIGH-DOSE QUADRIVALENT; 65Y+), 0.7 ML (HD-IIV4) 12/18/2019 Social History Tobacco Use Types Packs/Day Years Used Date Smoking Tobacco: Never Assessed Sex and Gender Information Value Date Recorded Sex Assigned at Not on file Gender Identity Not on file Sexual Orientation Not on file Plan of Treatment Health Maintenance Due Date Last Done Comments BONE DENSITY TESTING 1955 COLOGUARD (AGES 45-75) - COL ON CA SCREENING 1955 COLON MONITORING 1955 COLONOSCOPY - COLON CA SCREENING 1954 CT COLONOGRAPHY - COLON CA SCREENING 1955 Colorectal Cancer Screening 1955 FIT - COLON CA SCREENING 1955 FLEX SIG - COLON CA SCREENING 1955 LIPID TESTING 1955 MAMMOGRAM 1955 MEDICARE AWV 12 MONTHS 1955 HEPATITIS C SCREENING 11/22/1972 DTAP/TDAP/TD VACCINES (1 - Tdap) 1973 PNEUMOCOCCAL VACCINE 50+ (1 of 1 - PCV) 2004 ZOSTER VACCINE (1 of 2) 2004 COVID-19 VACCINE (2023-2 5 season) 2023 INFLUENZA VACCINE (#1) 2023 12/18/2019 DEPRESSION SCREENING 03/18/2024 Respiratory Syncytial Virus (RSV) Vaccine Pt: or over 60 yrs (1 - 1-dose 75+ series) 2029 HEPATITIS B VACCINE Aged Out No longe r eligible based on patient's age to complete this topic HIB VACCINE Aged Out No longer eligi ble based on patient's age to complete this topic HPV VACCINE Aged Out No longer eligi ble based on patient's age to complete this topic MENINGOCOCCAL (Group B) VACC INE SHARED DECISION-MAKING Aged Out No longer eligibl e based on patient's age to complete this topic MENINGOCOCCAL GROUPS A/C/Y/W VACCINE Aged Out No longer eligible b ased on patient's age to complete this topic PAULINA MORALES Personal/Famil y 1955 [address] [place] [address]
--- OUTSIDE RECORDS SUMMARY | 2024-05-29 10:24 | XMS_ITS | Patient Health Summary ---
Author Organization [facility] Address [address] [place] [address] Care Team Providers Care It Teacher Name Role Phone Unavailable Primary Care Provider Unavailabl e Note from [facility],non-owned Affiliates and Associated Physician Practices is amultiple site organization consisting of ambulatory clinics and hospital sitesin [place], [place], [place] and [place]. This disclosure is being madepursuant to the Care Everywhere program and may not contain all information available regarding this patient. Last updated 17.[facility] Immunizations * INFLUENZA VACCINE, HIGH-DOSE, QUADR. (FLUZONE HIGH-DOSE QUADRIVALENT; 65Y+), 0.7 ML (HD-IIV4)(Given 12/18/2019) Social History Tobacco Use Types Packs/Day Years Used Date Smoking Tobacco: Never Assessed Sex and Gender Information Value Date Recorded Sex Assigned at Not on file Gender Identity Not on file Sexual Orientation Not on file
--- OUTSIDE RECORDS SUMMARY | 2024-05-29 10:24 | XMS_ITS | Referral Summary ---
Author Organization [facility] Address [address] [facility] [place] [address] Care Team Providers Care Cycle Liaison Name Role Phone Unavailable Primary Care Provider Unavailabl e Source Comments [facility],non-owned Affiliates and Associated Physician Practices is amultiple site organization consisting of ambulatory clinics and hospital sitesin [place], [place], [place] and [place]. This disclosure is being madepursuant to the Care Everywhere program and may not contain all information available regarding this patient. Last updated 17.[facility] Immunizations Name Administration Dates Next Due INFLUENZA VACCINE, HIGH-DOSE , QUADR. (FLUZONE HIGH-DOSE QUADRIVALENT; 65Y+), 0.7 ML (HD-IIV4) 12/18/2019 Social History Tobacco Use Types Packs/Day Years Used Date Smoking Tobacco: Never Assessed Sex and Gender Information Value Date Recorded Sex Assigned at Not on file Gender Identity Not on file Sexual Orientation Not on file Plan of Treatment Not on file PAULINA MORALES Personal/Famil y 1955 [address] [address]
[2024-05-29 11:11] LABS: Alanine Aminotransferase 19 U/L (6-35); Albumin Level 4.2 g/dL (3.5-5.1); Alkaline Phosphatase 96 U/L (38-126); Anion Gap 9 mmol/L (4-12); Aspartate Amino Transferase 25 U/L (14-36); Bilirubin,Total 0.7 mg/dL (0.2-1.3); Blood Urea Nitrogen 12 mg/dL (7-17); Carbon Dioxide 28 mmol/L (22-30); Chloride 105 mmol/L (98-107); Cholesterol 144 mg/dL (0-200); Estimated Glomerular Filt Rate > 60; Glucose 132 mg/dL (65-110); HDL Direct 42 mg/dL; Potassium 3.9 mmol/L (3.4-5.0); Sodium 142 mmol/L (137-145); Triglycerides 90 mg/dL (<150)
[2024-05-29 11:14] LABS: Hemoglobin A1C 7.1 % (<5.7)
[2024-05-29 11:23] LABS: LDL Cholesterol Direct 77 mg/dL
== END 2024-05-29 09:47 | disposition home or self-care (01) ==
PROVIDERS: PCP Nurse Practitioner; Visit Provider Nurse Practitioner
DX: E78.5 Hyperlipidemia, unspecified (principal); E11.9 Type 2 diabetes mellitus without complications
CPT/HCPCS: 36415; 80053; 80061; 83036

== ENCOUNTER 2024-09-15 07:54 | Outpatient (CLI) | payer MEDICARE, SELFPAY ==
--- NOTE | ~2024-09-15 | DEXA_ITS ---
Bone Density Report Name: LOGAN CURRY Age: 68 Sex: Female Ethnicity: White Date of : 1955 Indication: postmenopausal; screening for osteoporosis; Referring Provider: CONNOR ESPITIA Study: Bone densitometry was performed. Exam Date: September 15, 2024 Accession number: [id number] Bone Density: Region BMD T-score Z-score Classification AP Spine(L1-L4) 1.275 2.1 4.2 Normal Femoral Neck (Left) 0.817 -0.3 1.5 Normal Total Hip (Left) 0.955 0.1 1.6 Normal Femoral Neck (Right) 0.835 -0.1 1.7 Normal Total Hip (Right) 0.976 0.3 1.8 Normal Total Hip Mean 0.965 0.2 1.7 Normal World Health Organization criteria for BMD impression classify patients as: Normal (T-score at or above -1.0), Osteopenia (T-score between -1.0 and -2.5), or Osteoporosis (T-score at or below -2.5). 10-year Fracture Risk: FRAX not reported because: All T-scores for Spine Total, Hip Total, Femoral Neck at or above -1.0 Clinical Information Provided by Patient: Has used the following medications: Vitamin D, Calcium Patient maximum height was 68 Menopause Age: 51 Drinks caffeinated beverages Onset of menses at age 14 Number of children 2 Impression: The patient has normal bone mass. Discussion: BONE DENSITY IS ABOVE THE MINIMUM DESIRABLE LEVEL AT ALL SKELETAL SITES TESTED. This patient?s bone mineral density is above the minimum desirable level (T-score -1.0 or better) at all sites measured. The patient should follow a healthful lifestyle (good nutrition with adequate calcium and vitamin D, and appropriate weight-bearing exercise). Follow-Up: Consider repeating this study in 5 years or sooner if there is some new clinical indication. Reported by: JERMAINE on 09/15/2024 8:32:00 AM. Reviewed, dictated and finalized at location A.
--- OUTSIDE RECORDS SUMMARY | 2024-09-15 07:58 | XMS_ITS ---
Author Organization [facility] Address [address] [place], [place] [address] Care Team Providers Care Circle Edger Name Role Phone TERRY Valentin Unavailable [phone] Zane Schreiber Unavailable Unavailable GARTH BROOKS Unavailable [phone] REASON FOR VISIT *General care Encounters Encounter Location Date Provider Diagnosis [facility] [place] [address] [id number] 10/28/2023 GARTH BROOKS Plan Of Treatment No Information Progress Notes * LOGAN PLATA YDOB: 1955 (68 yo F)Acc No.[id number]:10/28/2023 Patient: Stephanie MAT[address] JENNALOGAN Tiffanie Provider: Alexey Brooks DPM :1955 A ge:67 Y S ex:Female Date:10/28/2023 Address:[address] [place], [place] [id number] Subjective: * Chief Complaints: * 1 . *General care. * Medical History: Objective: * Vitals: Assessment: Plan: * Treatment: * Billing Information: * Visit Code: * Procedure Codes: * Electronic signature of GARTH BROOKS DPM on 09/15/2024 at 07:57 AM CDT Sign off status: Pending * Provider: Alexey Brooks DPM Date: 0 10/28/2023 Generated for Printi ng/Faxing/eTransmitting on: 0 09/15/2024 07:57 AM CDT
--- OUTSIDE RECORDS SUMMARY | 2024-09-15 07:58 | XMS_ITS ---
Author [facility] Address [address] [place], [place] [address] Care Team Providers Care Jig Builder Name Role Phone TERRY Valentin Unavailable [phone] Zane Schreiber Unavailable Unavailable GARTH BROOKS Unavailable [phone] REASON FOR VISIT *General care Encounters Encounter Location Date Provider Diagnosis [facility] [place] [address] [address] [id number] 05/13/2023 GARTH BROOKS Plan Of Treatment No Information Progress Notes * LOGAN PLATA YDOB: 1955 (68 yo F)Acc No.[id number]:05/13/2023 Patient: Stephanie MATTHE[address] JENNALOGAN Tiffanie Provider: Alexey Brooks DPM :1955 A ge:67 Y S ex:Female Date:05/13/2023 Address:[address] [place], [place] [phone] Subjective: * Chief Complaints: * 1 . *General care. * Medical History: Objective: * Vitals: Assessment: Plan: * Treatment: * Billing Information: * Visit Code: * Procedure Codes: * Electronic signature of GARTH BROOKS DPM on 09/15/2024 at 07:58 AM CDT Sign off status: Pending * Provider: Alexey Brooks DPM Date: 0 05/13/2023 Generated for Printi ng/Faxing/eTransmitting on: 0 09/15/2024 07:58 AM CDT
--- OUTSIDE RECORDS SUMMARY | 2024-09-15 07:59 | XMS_ITS | Clinical Summary ---
Author Organization [facility] Address [address] [place] [address] Care Team Providers Care Surgery Aide Name Role Phone Unavailable Primary Care Provider Unavailabl e Source Comments [facility],non-owned Affiliates and Associated Physician Practices is amultiple site organization consisting of ambulatory clinics and hospital sitesin [place], [place], [place] and [place]. This disclosure is being madepursuant to the Care Everywhere program and may not contain all information available regarding this patient. Last updated 17.[facility] Immunizations Immunization Administration Dates Next Due INFLUENZA VACCINE, HIGH-DOSE , QUADR. (FLUZONE HIGH-DOSE QUADRIVALENT; 65Y+), 0.7 ML (HD-IIV4) 12/18/2019 Social History Tobacco Use Types Packs/Day Years Used Date Smoking Tobacco: Never Assessed Comments Unknown Sex and Gender Information Value Date Recorded Sex Assigned at Not on file Legal Sex Female 12:57 PM CDT Gender Identity Not on file Sexual Orientation [...] VACCINE (1 of 2) 2004 COVID-19 VACCINE (1 - 2023-2 5 season) 2023 DEPRESSION SCREENING 03/18/2024 INFLUENZA VACCINE (Season Ended) 2024 12/18/19 20 Respiratory Syncytial Virus (RSV) Vaccine Pt: or [...] on patient's age to complete this [place] [address] MEDICARE [facility] SELF PAY NO INSURANCE Member Subscriber Plan / Payer (Ef fective for All Dates) Name:Paulina Morales Member ID:Not on file Relation to Subscriber:Not on file Name:PAULINA OMRALES Subscriber ID:Not on file (Home) Address: [address] [place] [address] Payer ID:Not on file Group ID:Not on file Type:Self Pay Address: [place], [place] MEDICARE
--- OUTSIDE RECORDS SUMMARY | 2024-09-15 07:59 | XMS_ITS | Data Portability ---
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 Socorro CHAVARRIA- Reviewed and agree, Beverley canela Not available [...] heart disease. Her mother had a small PA and states her brother has an ICD and other family members have hyperlipidemia and hypertension. 7. History of , cataract surgery and colon polyps. 8. The patient retired in October of 2018 and really has a low stress existence right now. She has a 24-year-old daughter who has graduated from medical school and is doing a residency in [place] with lots of endodontics involved. A 26-year-old daughter has a master's degree in public health and is now working for the [employer] in [place], [place]. 9. Paulina is going to be moving back to her home in [place] sometime in March of 2018. RECOMMENDATIONS: We [...] she is going to come back from [place] for office visits after she moves and I would certainly welcome seeing her since she is always a pleasure to see. Sincerely, Zechariah Loo M.D., F.A.C.C. Dictated but not proofread DICT: 03/03/2019 ONEAL: teofilo 03/03/2019 [id number] [email or web address] Not available 03/03/2019 15:40:22 03/31/2019 03/31/2019 IMPRESSIONS/CLIN [...] heart disease. Her mother had a small PA and states her brother has an ICD and other family members have hyperlipidemia and hypertension. 7. History of , cataract surgery and colon polyps. 8. The patient retired in October of 2018 and really has a low stress existence right now. She has a 24-year-old daughter who has graduated from medical school and is doing a residency in [place] with lots of endodontics involved. A 26-year-old daughter has a master's degree in public health and is now working for the [employer] in [place], [place]. 9. Paulina is going to be moving back to her home in [place] sometime in March of 2018. 10. Hypertension, good control as of 03/31/18 on 40 mg of lisinopril daily. 11. 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 Narayan Dictated, but not proofread. DICT: 03-31-2019; TRANS: J #[id number] 03-31-2019 [id number] CC: Tami Adams M.D. [phone] [address] [email or web address] Not available 03/31/2019 14:52:59 Plan of Treatment Reminders Order Date Submit Date Provider Last Modified By Organization Details Last Modified Time Details Appointments None recorded. Lab hemoglobin A1C, fingerstic k 2019 020 [email or web address] Amg - In Office Orders (For Internal Use Only), [address] [place], [address], 0 09:33:03 hemoglobin A1C, fingerstic k 2018 019 ANABELLE Amg - In Office Orders (For Internal Use Only), [address] [place], [address], 9 16:07:05 Referral None recorded. Procedures stress echocardio gram with doppler color flow (PROC) 2019 020 [email or web address] Amg - In Office Orders (For Internal Use Only), [address] [place], [address], 0 12:06:27 stress echocardio gram with doppler color flow (PROC) 2018 020 ANABELLE Not available 0 11:35:22 Surgeries None recorded. Imaging None recorded. Medication Orders Trulicity 0.75 mg/0.5 mL subcutaneo us pen injector 2019 020 INTERFACE [id number], [address], [address], 0 09:33:05 metformin 500 mg tablet 2019 020 INTERFACE [id number], [address], [address], 0 09:33:05 metoprolol succinate ER 25 mg tablet,ext ended release 24 hr 2018 019 [email or web address] [facility], [address], [address], 0 11:34:41 Trulicity 0.75 mg/0.5 mL subcutaneo us pen injector 2018 019 INTERFACE [id number], [address], [address], 9 11:02:17 metformin 500 mg tablet 2018 019 INTERFACE [id number], [address], [address], 9 11:02:17 Patient TargetsNo targets recorded. Patient Instructions Encounter Date Encounter Id Patient Instructions Last Modified By Organization Details Last Modified Time 01/27/2019 [id number] type 2 diabetes: care instructions [email or web address] Not available 01/27/2019 11:02:15 05/06/2019 [id number] type 2 diabetes: care instructions [email or web address] Not available 05/06/2019 09:33:03 Reason for Referral None Reported. Results Created Date Observation Date Name Description Value Unit Range Abnormal Flag Note LastModifiedBy Organization Detail LastModifiedTime 05/06/19 20 05/06/2019 hemog lobin A1C, finge rstic k HbA1C 6.7 Not Available Amg - In Office Orders (For Internal Use Only) [address] [place], [address], 05/06/2019 09:17:01 01/23/20 19 01/22/2019 lipid panel , serum trig 80 mg/dL 38-150 Jackie l:<15 0 Borde rline :150- 199 High: 200-4 99 Very High: >or=5 00 Not Available Amg - Lab [address], [place], [address], 01/22/2019 15:24:03 01/23/2001/22/2019 lipid panel , serum chol 127 mg/dL 128-20 0 low NCEP Guide lines : <200 Rosy able 200-2 39 Borde rline High >240 High Not Available Amg - Lab [address], [place], [address], 01/22/2019 15:24:03 01/23/20 19 01/22/2019 lipid panel , serum DHDL 42 mg/dL 40-85 HDL NCEP Guide lines <40.0 = Low 40 to >/=60 Jackie l Not Available [facility] - Lab [address] [address], [place], [address], 01/22/2019 15:24:03 01/23/20 19 01/22/2019 lipid panel , serum LDL.(calc.) 69 mg/dL 0-100 LDL NCEP Guide lines : <100. 0 Optim al 100-1 29 Near optim al 130-1 59 Borde rline High 160-1 89 High >/= 190 Very High Not Available [facility] - Lab [address] [address], [place], [address], 01/22/2019 15:24:03 01/23/20 19 01/22/2019 lipid panel , serum VLDL (calc.) 16.0 mg/dL 7.6-29 .8 Not Available Amg - Lab [address] [address], [place], [address], 01/22/2019 15:24:03 01/23/20 19 01/22/2019 lipid panel , serum chol/DHDL 3.02 ratio 1.00-5 .00 Not Available [facility] - Lab [address] [address], [place], [address], 01/22/2019 15:24:03 01/23/20 19 01/22/2019 CMP, serum or plasm a Na 139.0 mmol/ L 135.0- 145.0 Not Available [facility] - Lab [address] [address], [place], [address], 01/22/2019 15:24:06 01/23/20 19 01/22/2019 CMP, serum or plasm a K 4.1 mmol/ L 3.5-5. 2 Not Available [facility] - Lab [address] [address], [place], [address], 01/22/2019 15:24:06 01/23/20 19 01/22/2019 CMP, serum or plasm a cL 101 mmol/ L 98-109 Not Available [facility] - Lab [address] [address], [place], [address], 01/22/2019 15:24:06 01/23/20 19 01/22/2019 CMP, serum or plasm a eco2 27 mmol/ L 22-31 Not Available [facility] - Lab [address] [address], [place], [address], 01/22/2019 15:24:06 01/23/2001/22/2019 CMP, serum or plasm a glu 85 mg/dL 70-99 Impai red, Fasti n-1 25 Diabe tone, Two Fasti ng Speci mens: >125 Non-f astin g, 75 g. load: <140 Not Available [facility]g - Lab [address] [address], [place], [address], 01/22/2019 15:24:06 01/23/2001/22/2019 CMP, serum or plasm a BUN 12 mg/dL 7-23 Not Available [facility]g - Lab [address] [address], [place], [address], 01/22/2019 15:24:06 01/23/2001/22/2019 CMP, serum or plasm a creat 0.60 mg/dL 0.60-1 .30 IDMS trace able Not Available Amg - Lab [address] [address], [place], [address], 01/22/2019 15:24:06 01/23/2001/22/2019 CMP, serum or plasm a eGFR >60 >60 For Afric an Ameri can patie nts, multi ply resul ts of 60 or lower by 1.21 Not Available Amg - Lab [address] [address], [place], [address], 01/22/2019 15:24:06 01/23/20 19 01/22/2019 CMP, serum or plasm a Ca 9.5 mg/dL 8.4-10 .3 Not Available Amg - Lab [address] [place] [address], [place], [address], 01/22/2019 15:24:06 01/23/20 19 01/22/2019 CMP, serum or plasm a TP 7.2 g/dL 6.3-8. 2 Not Available Amg - Lab [address] [facility] [address], [place], [address], 01/22/2019 15:24:06 01/23/20 19 01/22/2019 CMP, serum or plasm a tbil 0.5 mg/dL 0.2-1. 3 Not Available Amg - Lab [address] [facility] [address], [place], [address], 01/22/2019 15:24:06 01/23/20 19 01/22/2019 CMP, serum or plasm a alb 4.2 g/dL 3.6-5. 3 Not Available Amg - Lab [address] [facility] [address], [place], [address], 01/22/2019 15:24:06 01/23/20 19 01/22/2019 CMP, serum or plasm a AST 24 U/L 14-36 Not Available Amg - Lab [address] [facility] [address], [place], [address], 01/22/2019 15:24:06 01/23/20 19 01/22/2019 CMP, serum or plasm a ALT 32 U/L 9-52 Not Available Amg - Lab [address] [facility] [address], [place], [address], 01/22/2019 15:24:06 01/23/20 19 01/22/2019 CMP, serum or plasm a alk P 87 U/L 38-126 Not Available Amg - Lab [address] [facility] [address], [place], [address], 01/22/2019 15:24:06 01/28/20 19 01/27/2019 hemog lobin A1C, finge rstic k HbA1C 6.8 Not Available Amg - In Office Orders (For Internal Use Only) [address] [facility], [place], [address], 01/27/2019 10:50:40 03/31/19 20 stres s echoc [...] Recorded Time Benign essentia l hyperten mickey 2239603 Completed 01/17/2015 Tami Adams MD [address], [address], [place], [address], [place] 6 11:06:35 Hyperlip idemia 52038718 Active Tami Adams MD [address], [address], [place], [address], [place] 6 09:52:45 Anemia 843881408 Completed 08/20/2016 Tami Adams MD [address], [address], [place], [address], [place] 7 21:40:37 Heart murmur 98376351 Completed 01/17/2015 Tami Adams MD [address], [address], [place], [address], [place] 6 11:06:35 Pure hypercho lesterol emia 650154803 Completed 201301/17/2015 LAST ASSESSED: 06 SEP 2013 9:40PM; TYPE: CHRONIC; IDENTIFIE D BY: KAYCE PARK; LAST EDITED: 06 SEP 2013 9:40PM; STATUS: ACTIVE Tami Adams MD [address], [address], [place], [address], [place] 7 16:03:54 Left lower quadrant pain 380806099 Completed 01/17/2015 Tami Adams MD [address], [address], [place], [address], [place] 6 11:06:35 Disorder of bone and articula r cartilag e 268470278 Completed 01/17/2015 osteopeni a Tami Adams MD [address], [address], [place], [address], [place] 6 11:06:35 Proteinu keli 41630225 Completed 201301/17/2015 LAST ASSESSED: 17 SEP 2013 8:39AM; TYPE: CHRONIC; LAST EDITED: 17 SEP 2013 8:39AM; STATUS: ACTIVE Tami Adams MD [address], [address], [place], [address], [place] 6 11:06:35 Type 2 diabetes mellitus 55696770 Completed 04/17/2017 Tami Adams MD [address], [address], [place], [address], [place] 8 16:22:25 Genitour inary pain 401074820 Completed 01/17/2015 bladder Tami Adams MD [address], [address], [place], [address], [place] 6 11:06:35 Vitamin D deficien cy 76992170 Active Tami Adams MD [address], [address], [place], [address], [place] 6 09:52:45 Atrophic vaginiti s 15142677 Active Tami Adams MD [address], [address], [place], [address], [place] 6 11:06:35 Benign neoplasm of colon 93351275 Completed 201301/17/2015 LAST ASSESSED: 13 OCT 2013 8:45AM; TYPE: CHRONIC; IDENTIFIE D BY: KAYCE PARK; LAST EDITED: 13 OCT 2013 8:45AM; STATUS: ACTIVE Tami Adams MD [address], [address], [place], [address], [place] 6 11:06:35 Knee pain Completed 01/17/2015 Tami Adams MD [address], [address], [place], [address], [place] 6 11:06:35 Polyp of colon 87787798 Active Tami Adams MD [address], [place], [address], [place] 6 11:06:35 Essentia l hyperten mickey 20618268 Active Tami Adams MD [address], [address], [place], [address], [place] 6 09:52:45 Iron deficien cy anemia 90764952 Active Tami Adams MD [address], [address], [place], [address], [place] 6 11:06:35 Left sided abdomina l pain 276364041 Active Tami Adams MD [address], [address], [place], [address], [place] 6 11:06:35 Vaginiti s 10224825 Active Tami Adams MD [address], [address], [place], [address], [place] 6 11:06:35 Benign essentia l hyperten mickey 0345859 Active Tami Adams MD [address], [address], [place], [address], [place] 6 11:06:35 Pure hypercho lesterol emia 039750365 Completed 04/16/2016 Tami Adams MD [address], [address], [place], [address], [place] 7 16:03:54 Low back pain 598562226 Active Tami Adams MD [address], [address], [facility] [place], [address], [place] [facility] 6 09:52:45 Gynecolo gic examinat ion Active 2016 Iliana Duran MD [address], [facility] [place], [address], [place] [facility] [place] 7 13:47:15 Type 2 diabetes mellitus without complica tion 208140512 Active 2017 Tami Adams MD [address], [facility] [place], [address], [place] [facility] [place] 8 16:22:18 Coronary arterios clerosis 59743964 Active 2017 Tami Adams MD [address], [address], [facility] [place], [address], [place] [facility] [place] 8 17:22:28 Problem Notes None recorded. Procedures Surgical History Date Name Laterality Status Provider Name and Address Organization Details Recorded Time 12/17/19 13 Cataract Surgery completed Kayce Park MD [address], [address], [place], [address], [place] [facility] 01/27/2014 16:54:43 03/05/20 12 Colonoscopy completed Liliane Hsu [place] [facility] 07/20/2015 14:47:43 Caesarean Section completed Antonella Pedroza LPN [place] [facility] 04/23/2016 13:33:27 Tonsillectomy/A denoidectomy completed Masha Bennett CMA [place] [facility] 12/11/2013 14:26:54 Imaging Results None recorded. Procedure Notes None recorded. Medical Equipment None [...] Not Available Not Available Not Avai lable OneTouch Ultra Test strips USE ONE TEST [...] No t Available FreeStyle Karen 14 Day [place] USE DIRECTED . 04/16 completed Not Available Not Available Not Available FreeStyle Karen 14 Day Sensor kit CHANGE EVERY 14 DAYS 2019 active Not Available Not Available Not Avai lable Vitals Date Recorded Systolic blood pressure Diastolic blood pressure Provider Name and Address Organization Details Last Updated DateTime 03/31/2019 110 mm[Hg] 70 mm[Hg] Zechariah Loo MD [address], [address], [place], [address], [place] [facility] 03/31/2019 11:47:44 Date Recorded Body height Body mass index (BMI) Body weight Heart rate Oxygen saturation Oxygen saturation in Arterial blood by Pulse oximetry Systolic blood pressure Diastolic blood pressure Provider Name and Address Organization Details Last Updated DateTime 0 175.26 cm 24.1 kg/m2 45013.5 6 g 97 /min 98 % 98 % 102 mm[Hg] 66 mm[Hg] Devi Watters [place] [facility] 0 11:34:08 Date Recorded Body height Body mass index (BMI) Body weight Heart rate Systolic blood pressure Diastolic blood pressure Provider Name and Address Organization Details Last Updated DateTime 0 175.26 cm 24.1 kg/m2 58916.5 6 g 79 /min 136 mm[Hg] 70 mm[Hg] Sarai Castro [place] [facility] 0 09:12:22 Date Recorded Body height Body mass index (BMI) Body weight Heart rate Systolic blood pressure Diastolic blood pressure Provider Name and Address Organization Details Last Updated DateTime 9 175.26 cm 24.3 kg/m2 83538.3 g 90 /min 124 mm[Hg] 70 mm[Hg] Estrellita ANDRADE [place] [facility] 9 10:29:32 Date Recorded Body height Body mass index (BMI) Body weight Heart rate Systolic blood pressure Diastolic blood pressure Provider Name and Address Organization Details Last Updated DateTime 9 175.26 cm 24.4 kg/m2 69348.7 4 g 90 /min 144 mm[Hg] 68 mm[Hg] Jeison Curry [place] [facility] 9 10:02:50 Date Recorded Body height Body mass index (BMI) Body weight Oxygen saturation Oxygen saturation in Arterial blood by Pulse oximetry Heart rate Systolic blood pressure Diastolic blood pressure Provider Name and Address Organization Details Last Updated DateTime 9 175.26 cm 24 kg/m2 24379.1 2 g 98 % 98 % 86 /min 140 mm[Hg] 80 mm[Hg] Sameer Morales [place] [facility] 9 11:44:58 Social History Question Answer Notes LastModified by Organizat ion Details LastModified Time Tobacco Smoking Status Former Smoker quit 1988 Kayce Park MD [address], [place], [address], [place] [facility] 01/27/2014 16:53:53 What Is Your Level Of Caffeine Consumption? Occasional Information not available 01/27/2014 What Type Of Diet Are You Following? DIABETIC Information not available 01/27/2014 Which Illicit Or Recreational Drugs Have You Used? Denied Information not available 12/11/2013 Marital Status Informatio n not available 01/27/2014 What Was The Date Of Your Most Recent Tobacco Screening? 07/16/2018 Information not available 10/10/2018 Seat Belts Used Routinely Yes Information not available 01/27/2014 Smoke Alarm In Home Yes Information not available 01/27/2014 How Many Years Have You Smoked Tobacco? 5 Information not available 01/01/2017 Sex: Female Functional Status Question Answer Note LastModified by Organizat ion Details LastModified Time What is your level of alcohol consumption? Occasional rare Information not available 01/27/2014 Do you or have you ever used smokeless tobacco? Never used smokeless tobacco Information not available 01/26/2019 What is your occupation? full-time Information not available 12/11/2013 Do you or have you ever used e-cigarettes or vape? Never used electronic cigarettes Information not available 01/26/2019 What is your exercise level? Occasional walks 30 min 4 times a week Information not available 01/27/2014 Mental Status None recorded. Family History Relationship Description Onset Age of this Age Resolved Age Notes LastModified by Organization Details LastModified Time Father Malignant neoplasm of lung 74 veastes Not available 2015 10:57:51 Father Diabetes mellitus veastes Not available 2015 10:57:51 Mother Diabetes mellitus veastes Not available 2015 10:57:51 Mother Multiple myeloma 82 veastes Not available 2015 10:57:51 Sister Diabetes mellitus veastes Not available 2015 10:57:51 Brother Diabetes mellitus veastes Not available 2015 10:57:51 Medical History Condition Response hyperlipidemia Y high blood pressure Y anemia Y diabetes mellitus Y Gynecological History Statement/Question Response Abnormal Pap [...] virus, trivalent, PF 7 completed Not Available [facility], [facility] 04/05/2019 03:21:26 Tdap 8 completed Not Available [facility], [facility] 04/04/2019 05:29:45 Influenza, MDCK, quadrivalent, PF 8 completed Not Available [facility], [facility] 04/04/2019 03:06:44 Influenza, split virus, quadrivalent, PF 9 completed Not Available [facility], [facility] 04/04/2019 02:50:37 influenza, unspecified formulation 4 completed Belinda mar[place], [place] [facility] 01/27/2014 16:31:08 Influenza, split virus, trivalent, preservative 5 completed Not Available [facility], [facility] 04/04/2019 06:10:19 Influenza, split virus, quadrivalent, PF 6 completed Not Available [facility], [facility] 04/18/2019 02:15:16 Past Encounters Encounter ID Performer Location Encounter Start Date Encounter Closed Date Diagnosis/Indication Diagnosis SNOMED-CT Code Diagnosis ICD10 Code Diagnosis Note [id number] Rosalinda Delaney MD IND_SMG_O GB_DOC [address] [facility] [address] 12/31/2013 06:57:47 12/31/2013 08:03:05 Gynecologic examination 61299032 Atrophic vaginitis 70906292 [id number] Kayce Park MD zFNL_IND_ SMG_ABL_D [facility] [address] [facility], [address] [place] [address] 01/27/2014 15:33:41 01/27/2014 17:42:20 Benign essential hypertension 7999921 Type 2 devyn betes mellitus 29497994 Hyperlipidemia 86089100 Anemia 704842310 [id number] MD Dl Cuadra_IND_ SMG_ABL_D [facility] [address], [address] [place] [address] 06/08/2014 10:22:44 06/08/2014 12:03:42 Benign essential hypertension 7081629 Type 2 devyn betes mellitus 22387611 Benign bisi plasm of colon 88109184 Pure hypercholesterolemia 096498308 Long-term drug therapy 140147185 Vitamin D deficiency 59945356 Knee pain 50533713 Anemia 398033980 Polyp of colon 26661104 [id number] IND_SMG_[facility] [address] [place] [address] 08/25/2012 00:00:00 [id number] IND_SMG_[facility] [address], [address] [place] [address] 02/04/2013 00:00:00 [id number] IND_SMG_[facility] [address], [address] [place] [address] 06/03/2013 00:00:00 [id number] IND_SMG_[facility] [address], [address] [place] [address] 08/07/2013 00:00:00 [id number] IND_SMG_[facility] [address], [address] [place] [address] 10/13/2013 00:00:00 [id number] MD Dl [place] [address] [facility] [place] [address] 01/17/2015 13:01:29 01/17/2015 14:47:00 Vitamin D deficiency 05156630 E55.9 Diabetes mellitus 707695 09 E11.9 last A1C 6.3%, well-contr olled. cont current regimen. start daily baby asa. Essential hypertension 44572317 I10 well-contr olled. cont current regimen. Anemia 124074631 D64.9 had colonoscop y done 07/2014- benign polpys found. never put on iron supp. will recheck CBC. Administra tion of influenza vaccine 62723797 Z23 Screening for malignant neoplasm of breast 454364749 Z12.31 Z12.39 Hyperlipidemia 93455955 E78.5 pt needs FLP rechecked as part of her work biometrics screening. cont statin. [id number] Rosalinda Delaney MD IND[facility]SMG[facility]O GB[facility]DOC [address] [facility] [place] [address] 02/17/2015 08:45:34 02/17/2015 10:21:32 Gynecologic examination 77857146 Z01.419 Z01.411 Atrophic vaginitis 43977 000 N95.2 [id number] Tami Adams MD zCLSD_IND _SMG_MAM_ DOC [address] [place] [address] 05/31/2015 07:52:48 05/31/2015 09:00:49 Vitamin D deficiency 83933004 E55.9 ck labs next Diabetes mellitus 985507 09 E11.9 last A1C 6.3%, well-contr olled. cont current regimen. start daily baby asa. Essential hypertension 03698908 I10 well-contr olled. cont current regimen-ck labs Anemia 998555897 D64.9 had colonoscop y done 07/2014- benign polpys found. never put on iron supp. will recheck CBC. Hyperlipidemia 86461315 E78.5 ck labs-rec heart scan Vaginitis 76805124 N76.0 try metrogel cream Left sided abdominal pain 957299807 R10.9 mild-assoc iated w/ vag d/c w/ odor-exam nl-rec reeval after Metrogel vag cream [id number] Tami Adams MD zCLSD_IND _SMG_MAM_ DOC [address] [place] [address] 12/14/2015 10:45:29 12/14/2015 11:50:31 Vitamin D deficiency 58532016 E55.9 ck labs next-begin Vit D3 4000 u qd otc Diabetes mellitus 507080 09 E11.9 A1C up to 6.9-has gained wt-long discussion on diet/exerc ise Essential hypertension 43418238 I10 well-contr olled. cont current regimen Anemia 100835843 D64.9 had colonoscop y done 07/2014- benign polpys found. Better-thi nks was diet related as was having dental work done previously and not able to eat much. Hyperlipidemia 97639300 E78.5 heart scan 159--on statin/asa -has family hx CAD-refer cardiology Active or passive immunization 182239602 Z23 flu shot today Low back pain 921980342 M54.5 left-radia tone to groin--usu ally when in bed--must consider low back origin-con oil well shooter xray [id number] Zechariah Loo MD IND_SMG_M OB_DOC [address] [place] [facility] [place] [address] 02/21/2016 09:32:13 02/21/2016 10:03:19 Dyspnea on exertion 92900289 R06.09 [id number] Iliana Duran MD IND_SMG_O GB_DOC [address] [facility] [place] [address] 03/30/2016 12:53:39 03/30/2016 13:54:19 Screening mammography 74503117 Z12.31 Gynecologi c examination 81683045 Z01.419 [id number] Tami Adams MD zCLSD_IND _SMG_MAM_ DOC [address] [place] [address] 04/23/2016 13:16:09 04/23/2016 14:39:15 Adult health examination 061371834 Z00.00 Done. 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 Recommend monthly self breast exams and annual mammograms .Had flu shot. Screening for malignant neoplasm of rectum 827173685 Z12.12 Check FOBT. Type 2 devyn betes mellitus 98414810 E11.9 A1c is worse at 8.1. Long discussion with patient regarding diet and exercise. Recommend decrease carbs and sweets and increase steps per day to 7500. We will see patient back in 3-4 months for repeat labs and office visit. Check microalbum in.Recomme nd yearly ophthalmol ogy exam. Hyperlipidemia 65107692 E78.5 heart scan 159--on statin/asa -Saw Dr. Loo and had normal stress test. To follow-up in February this year. Essential hypertension 76809512 I10 Stable. Polyp of colon 26706454 K63.5 Has both tubular and hyperplast ic polyps. To be rechecked in July [address] [place]. Vitamin D deficiency 347 51447 E55.9 Recommend decrease vitamin D3 4000 units to every other day until current supply is finished and then change to 2000 units per day Pain in coccyx 21821412 M53.3 recommend donut ring to sit on at work [id number] Tami Adams MD zCLSD_IND _SMG_MAM_ DOC [address] [facility] [place] [address] 08/28/2016 08:34:52 08/28/2016 09:44:49 Benign essential hypertension 6962947 I10 Stable. Type 2 devyn betes mellitus 20245290 E11.9 A1c Improved from 8.1-6.9. Continue diet and exercise efforts. Refer to diabetic education at [facility]. Hyperlipidemia 41946026 E78.5 heart scan 159--on statin/asa -Saw Dr. Loo and had normal stress test. To follow-up in February this year.Kendra pollard [id number] Tami Adams MD zCLSStephanie_IND _SMG_MAM_ DOC [address] [place] [address] 01/01/2017 11:28:30 01/01/2017 12:32:24 Benign essential hypertension 7654633 I10 Stable. Type 2 devyn betes mellitus 29718298 E11.9 A1c Increased to 7.3 up from 6.9.. Continue diet and exercise efforts. Refer to diabetic education at [facility]. Hyperlipidemia 26275674 E78.5 heart scan 159--on statin/asa -Saw Dr. Loo and had normal stress test. To follow-up in February this year.Kendra pollard [id number] Zechairah Loo MD IND_SMG_M OB_DOC [address] [facility] [place] [address] 01/31/2017 08:35:13 01/31/2017 09:48:59 Intermittent palpitations 788353781 R00.2 [id number] Tami Adams MD zCLSStephanie_IND _SMG_MAM_ DOC [address] [facility] [place] [address] 05/07/2017 08:17:50 05/07/2017 09:36:44 Adult health examination 290644126 Z00.00 Done. 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 Recommend monthly self breast exams and annual mammograms .Had flu shot.Tdap given today. Benign ess ential hypertension 7318743 I10 Stable. Type 2 devyn betes mellitus 46573592 E11.9 A1c Increased to 7.7 up from 7.3.. Went to diabetic education and feels like she is eating better and walking more. Still has a lot of stress. Long discussion on options. Discussed possibilit y of seeing endocrinol ogy versus continuing current efforts and rechecking her A1c in 3 months with the thought that if her A1c is not significan tly improved at that time we will either refer to endocrinol ogy or add Trulicity. Hyperlipidemia 91533641 E78.5 heart scan 159--on statin/asa -Saw Dr. Loo and had normal stress test. Vitamin D deficiency 347 83014 E55.9 Stable. Polyp of colon 66753821 K63.5 Has both tubular and hyperplast ic polyps. To be rechecked in July [address] [place]. Active or passive immunization 815557633 Z23 Tdap today. [id number] Rosalinda Delaney MD IND_SMG_O GB_DOC [address] [facility] [place] [address] 07/25/2017 09:14:43 07/25/2017 10:21:22 Gynecologic examination 69782412 Z01.419 Pt has dense breast tissue and would like to consider limited Breast MRI in January. Pt is going to get her appt for colpo. [id number] Tami Adams MD zCLSD_IND _SMG_MAM_ DOC [address] [facility] [place] [address] 11/21/2017 14:52:19 11/21/2017 15:34:04 Benign essential hypertension 7290775 I10 Stable. Hyperlipidemia 66315797 E78.5 heart scan 159--on statin/asa -Saw Dr. Loo and had normal stress test. Vitamin D deficiency 347 20290 E55.9 Stable. Polyp of colon 65223862 K63.5 Has both tubular and hyperplast ic polyps. To be rechecked in August [address] Felix Quintana ed type 2 diabetes mellitus 384747884 E11.65 A1c continues to rise. Went to diabetic education and feels like she is eating well and is walking every day. Long discussion on options. Would like to see endocrinol ogy. Referral done. [id number] Favian Randolph MD IND_SMG_E N[facility] [address] [place] [address] 12/20/2017 14:52:29 12/23/2017 09:28:44 Uncontrolled type 2 diabetes mellitus 196318486 E11.65 Extensive perusal of EMR done. Inputs [...] ia Reassess in 12 weeks. Essential hypertension 75342061 I10 controlled Dyslipidem ia due to type 2 diabetes mellitus 5020151981 02 E78.5 continue pravastati n Vitamin D deficiency 347 43697 E55.9 CONTINUE SUPPLEMENT S [id number] Favian Randolph MD IND_SMG_E NDO_Carme lSpcClini c_DOC [address] [place] [address] 03/27/2018 14:17:34 03/27/2018 16:10:58 Uncontrolled type 2 diabetes mellitus 553091915 E11.65 Extensive perusal of EMR done. Inputs [...] ia Reassess in 12 weeks. Essential hypertension 29824008 I10 controlled Dyslipidem ia due to type 2 diabetes mellitus 2611527578 02 E78.5 continue pravastati n Vitamin D deficiency 347 03703 E55.9 CONTINUE SUPPLEMENT S [id number] Zechariah Loo MD IND_SMG_M OB_DOC [address] [place] [address] 04/16/2018 11:01:49 04/16/2018 11:35:25 Coronary arteriosclerosis 26541290 I25.118 Intermitte nt palpitations 138588685 R00.2 [id number] Favian Randolph MD IND_SMG_E NDO_Carme lSpcClini c_DOC [address] [facility], [address] [place] [address] 05/06/2018 08:27:46 05/09/2018 15:03:28 Uncontrolled type 2 diabetes mellitus 188269559 E11.65 Extensive perusal of EMR done. Inputs [...] ia Reassess in 12 weeks. Essential hypertension 30930220 I10 controlled Dyslipidem ia due to type 2 diabetes mellitus 3130163827 02 E78.5 continue pravastati n [id number] Tami Adams MD zCLSD_IND _SMG_MAM_ DOC [address] [place] [address] 05/21/2018 09:01:21 05/21/2018 09:42:19 Adult health examination 695728764 Z00.00 Done. 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 Recommend monthly self breast exams and annual mammograms . Up-to-date on vaccines. Benign ess ential hypertension 1860079 I10 Stable. Type 2 devyn betes mellitus 63883263 E11.9 Per Endo. Improving. Hyperlipidemia 69056522 E78.5 heart scan 159--on statin/asa -Saw Dr. Loo and had normal stress test.Recom mend increase exercise to increase HDL. Vitamin D deficiency 347 12112 E55.9 Stable. Polyp of colon 40624223 K63.5 Has both tubular and hyperplast ic polyps. To be rechecked in [id number] MD ALBERTINA Ma_SMG_E NDO_Carme lSpcClini c_DOC [address] [place] [address] 07/16/2018 10:38:42 07/16/2018 11:29:16 Uncontrolled type 2 diabetes mellitus 500113961 E11.65 Extensive perusal of EMR done. Inputs [...] ia Reassess in 12 weeks. Essential hypertension 83614635 I10 controlled Dyslipidem ia due to type 2 diabetes mellitus 3793183160 02 E78.5 continue pravastati n Vitamin D deficiency 347 14464 E55.9 CONTINUE SUPPLEMENT S [id number] Rosalinda Delaney MD zFNL_IND_ SMG_OGW_D OC [address] [facility], [address] [place] [address] 07/31/2018 08:16:31 07/31/2018 09:01:03 Gynecologic examination 62401788 Z01.419 vag d/c. Atrophic vaginitis 63314 000 N95.2 recommend Millenium ID or liqui-bead by [place]. [id number] MD ALBERTINA Ma_SMG_E NDO_Carme lSpcClini c_DOC [address] [facility], [address] [place] [address] 10/21/2018 11:10:49 10/21/2018 12:23:57 Uncontrolled type 2 diabetes mellitus 454292371 E11.65 Extensive perusal of EMR done. Inputs [...] 12 weeks.COUN SELLED on exercise Essential hypertension 07999611 I10 controlled Dyslipidem ia due to type 2 diabetes mellitus 1070320296 02 E78.5 continue pravastati n Vitamin D deficiency 347 46587 E55.9 CONTINUE SUPPLEMENT S [id number] Tami Adams MD zCLSD_IND _SMG_MAM_ DOC [address] [place] [address] 01/26/2019 14:58:24 01/26/2019 15:48:08 Benign essential hypertension 2140553 I10 Check blood pressure twice a day for 1 week and call the readings. Type 2 devyn betes mellitus 38096012 E11.9 Per Endo. Improving. Hyperlipidemia 26067141 E78.5 heart scan 159--on statin/asa -Saw Dr. Loo and had normal stress test.HDL has improved by 10 points with exercise! Vitamin D deficiency 347 47438 E55.9 Stable. Polyp of colon 93657806 K63.5 Has both tubular and hyperplast ic polyps. To be rechecked in -2022 Furuncle of buttock 1243 0003 L02.32 Recommend continue warm moist soaks several times a day to call the office if it does not continue to improve may need an antibiotic . Injury of toenail 135291 000 S99.922A Left great medial toenail painful ingrowing into the skin. Refer podiatry. [id number] Favian Randolph MD IND_SMG_E NDO_Carme lSpcClini c_DOC [address] [facility], [address] [place] [address] 01/27/2019 10:22:48 01/27/2019 11:12:47 Uncontrolled type 2 diabetes mellitus 913911525 E11.65 Extensive perusal of EMR done. Inputs [...] 12 weeks.COUN SELLED on exercise Essential hypertension 76410622 I10 controlled Dyslipidem ia due to type 2 diabetes mellitus 8646055239 02 E78.5 continue pravastati n Vitamin D deficiency 347 19257 E55.9 CONTINUE SUPPLEMENT S [id number] BEVERLEY FLORES PA-C IND_[facility]_M OB_DOC [address] [place] [place] [address] 02/03/2019 09:52:14 02/03/2019 10:49:22 Palpitations 59155741 R00.2 Essential hypertension 92745850 I10 [id number] Zechariah Loo MD IND_[facility]_M OB_DOC [address] [place] [address] 03/03/2019 11:30:23 03/03/2019 12:11:02 Essential hypertension 98220940 I10 Atypical chest pain 1025 86427 R07.89 [id number] Zechariah Loo MD IND_[facility]_M OB_DOC [address] [place] [address] 03/31/2019 11:12:27 03/31/2019 11:45:52 Essential hypertension 50371126 I10 Coronary arteriosclerosis 80388247 I25.118 Intermitte nt palpitations 462445819 R00.2 [id number] Favian Randolph MD IND_SMG_E NDO_Carme lSpcClini c_DOC [address] [facility] [address] [place] [address] 05/06/2019 08:08:35 05/06/2019 09:44:09 Uncontrolled type 2 diabetes mellitus 043822430 E11.65 Extensive perusal of EMR done. Inputs [...] 12 weeks.COUN SELLED on exercise Essential hypertension 72438907 I10 controlled Dyslipidem ia due to type 2 diabetes mellitus 6330649015 02 E78.5 continue pravastati n Vitamin D deficiency 347 81874 E55.9 CONTINUE SUPPLEMENT S Health Concerns Section Related Observation LastModified by Organization Detai ls LastModified Time None Recorded Concern Status LastModified by Organization Details LastModified Time None Recorded Advance Directives Directive None Recorded Payers Insurance Date Sequence Insurance Name Policy Number Policy Berger Covered Member ID Berger Member ID Guarantor Name 03/31/2019 1 [place] [id number] Paulina Y Canones-Pu rnell [id number] Paulina Y Marlys-Purne ll 05/02/2019 1 [place] [id number] Paulina Y Marlys-Pu rnell [id number] Paulina Y Marlys-Purne ll 02/03/2019 1 [place] PREFERRED [id number] Paulina Marlys-Pu rnell [id number] Paulina Y Canones-Purne ll 03/03/2019 1 [place] [id number] Paulina Y Canones-Pu rnell [id number] Paulina Y Marlys-Purne Notes Date Note Type Note Provider Name [...] MD [address] , [address], [place], [address], [place] - [facility] 01/27/2019 11:09:18 02/03/2019 text/html Ms. Javy [...] to move back to her hometown in [place] in approximately one month. BEVERLEY FLORES PA-C [address] [place] [address], [address], [place], [address], [facility] 02/10/2019 11:31:49 03/03/2019 text/html CHIEF COMPLAINT: Hypertension, abnormal calcium score. HISTORY OF PRESENT ILLNESS: Paulina is overall doing well. She recently saw Beverley for elevated blood pressure and Beverley started metoprolol 25 mg daily. Her blood pressure really has not changed and her blood pressures are commonly in the 150/95 range. Paulnia does walk nearly 10,000 steps a day. [...] good shape. Zechariah Loo MD [address] [place] [address], [address], [place], [address], [facility] 03/03/2019 15:55:11 03/31/2019 text/html CHIEF COMPLAINT: Hypertension. [...] ankle edema. Zechariah Loo MD [address] [place] [address], [address], [place], [address], [place] - [facility] 04/01/2019 07:33:35 05/06/2019 text/html Patient is [...] or diarrhoea. Favian Randolph MD [address] [place] [address], [address], [place], [address], [place] - [facility] 05/06/2019 09:35:23 OBGyn Episode No OBEpisode recorded.
--- OUTSIDE RECORDS SUMMARY | 2024-09-15 07:59 | XMS_ITS | Patient Health Record ---
Author Organization [facility] Address [address] [place], [place] [id number] Care Team Providers Care Head Coach Name Role Phone TERRY Valentin Unavailable [phone] Zane Schreiber Unavailable Unavailable GARTH BROOKS Unavailable [phone] Allergies No Known Allergies Reason For Referral No Information Medications Medication SIG (Take, Route, Frequency, Duration) Notes Start Date End Date Status Ciclopirox Olamine 0.77 % APPLY SMALL AM OUNT TO FUNGAL TOENAILS 1-2X DAILY. External; Duration: 30 Days Acti ve Farxiga 5 MG TAKE 1 TABLET BY YONNY TH EVERY DAY Oral; Duration: 90 Days Active Trulicity 0.75 MG/0.5ML INJECT 0.75 MG ( 0.5 ML) SUBCUTANEOUSLY WEEKLY Subcutaneous; Duration: 28 Days Active metFORMIN HCl 500 MG TAKE 2 TABLETS BY M OUTH TWICE A DAY Oral; Duration: 90 Days Active Lisinopril 40 MG TAKE 1 TABLET BY YONNY TH EVERY DAY Oral; Duration: 90 Days Active Pravastatin Sodium 10 MG TAKE 1 TABLET B Y MOUTH EVERY DAY Oral; Duration: 90 Days Active Immunizations Vaccine Route Administration Date Status Comme nts Influenza, high dose seasonal Unknown 02/14/2023 Admini stered Plan Of Treatment No Information Insurance Providers Payer Name Payer Address Payer Phone Subscriber Number Group Number Insured Name Patient Relationship to Insured Coverage Start Date Coverage End Date Medicare Part B [place] [address] [facility] [place] [address] [id number] LOGAN PLATA Self - patient is the insured [facility] [address] [address] [place], [place] [id number] LOGAN PLATA Self - patient is the insured
== END 2024-09-15 07:55 | disposition home or self-care (01) ==
PROVIDERS: PCP Nurse Practitioner; Visit Provider Nurse Practitioner
DX: Z13.820 Encounter for screening for osteoporosis (principal); Z78.0 Asymptomatic menopausal state
CPT/HCPCS: 77080

== ENCOUNTER 2024-11-10 07:35 | Outpatient (CLI) | payer MEDICARE, SELFPAY ==
--- OUTSIDE RECORDS SUMMARY | 2023-05-13 03:10 | XMS_ITS ---
[facility] Address [address] [place], [place] [id number] Care Team Providers Care Fly Tier Name Role Phone TERRY Valentin Unavailable [phone] Zane Schreiber Unavailable Unavailable GARTH BROOKS Unavailable [phone] REASON FOR VISIT *General care Encounters Encounter Location Date Provider Diagnosis [facility] [place] [address] [address] [id number] 05/13/2023 GARTH BROOKS Plan Of Treatment No Information Progress Notes * LOGAN PLATA YDOB: 1955 (68 yo F)Acc No.[id number]:05/13/2023 Patient: Stephanie MATTHEWS JENNALOGAN Tiffanie Provider: Alexey Brooks DPM :1955 A ge:67 Y S ex:Female Date:05/13/2023 Address:[address] [place], [place] [id number] Subjective: * Chief Complaints: * 1 . *General care. * Medical History: Objective: * Vitals: Assessment: Plan: * Treatment: * Billing Information: * Visit Code: * Procedure Codes: * Electronic signature of GARTH BROOKS DPM on 11/10/2024 at 07:39 AM CDT Sign off status: Pending * Provider: Alexey Brooks DPM Date: 0 05/13/2023 Generated for Printi ng/Faxing/eTransmitting on: 0 11/10/2024 07:39 AM CDT
--- OUTSIDE RECORDS SUMMARY | 2023-10-28 04:30 | XMS_ITS ---
[facility] Address [address] [place], [place] [id number] Care Team Providers Care Subway Operator Name Role Phone TERRY Valentin Unavailable [phone] Zane Schreiber Unavailable Unavailable GARTH BROOKS Unavailable [phone] REASON FOR VISIT *General care Encounters Encounter Location Date Provider Diagnosis [facility] [place] [address] [address] [phone] 10/28/2023 GARTH BROOKS Plan Of Treatment No Information Progress Notes * LOGAN PLATA YDOB: 1955 (68 yo F)Acc No.[id number]:10/28/2023 Patient: Stephanie MATTHEWS JENNALOGAN Tiffanie Provider: Alexey Brooks DPM :1955 A ge:67 Y S ex:Female Date:10/28/2023 Address:[address] [place], [place] [id number] Subjective: * Chief Complaints: * 1 . *General care. * Medical History: Objective: * Vitals: Assessment: Plan: * Treatment: * Billing Information: * Visit Code: * Procedure Codes: * Electronic signature of GARTH BROOKS DPM on 11/10/2024 at 07:39 AM CDT Sign off status: Pending * Provider: Alexey Brooks DPM Date: 0 10/28/2023 Generated for Printi ng/Faxing/eTransmitting on: 0 11/10/2024 07:39 AM CDT
--- NOTE | ~2024-11-10 | MM_ITS ---
EXAMINATION: MM screening danna BI w carmen HISTORY: Screening TECHNIQUE: Craniocaudal and mediolateral oblique 3-D tomosynthesis images were obtained and synthetic 2-D images were generated. CAD analysis was submitted and interpreted. COMPARISON: Comparison to multiple prior studies sequentially, with oldest reviewed study dated 02/18/2020. BREAST PARENCHYMAL COMPOSITION: The breasts are heterogeneously dense, which may obscure small masses. FINDINGS: There is no evidence of suspicious mass, calcification, or architectural distortion to suggest malignancy in either breast. IMPRESSION: 1. No mammographic evidence of malignancy. 2. Recommend routine screening mammography in one year. BI-RADS Category 1: Negative Reviewed, dictated and finalized at location C.
--- OUTSIDE RECORDS SUMMARY | 2024-11-10 07:39 | XMS_ITS | Patient Health Record ---
Author Organization [facility] Address [address] [place], [place] [address] Care Team Providers Care Industrial Design Engineer Name Role Phone TERRY Valentin Unavailable [phone] Zane Schreiber Unavailable Unavailable Allergies No Known Allergies Reason For Referral [...] Date Coverage End Date Medicare Part B [place] [address] [place] [address] [id number] LOGAN PLATA Self - patient is the insured [facility] [address] [address] [place], [place] [phone] [phone] [id number] LOGAN PLATA Self - patient is the insured
--- OUTSIDE RECORDS SUMMARY | 2024-11-10 07:40 | XMS_ITS | Patient Health Record ---
Author Organization [facility] Address [address] [place] [address] Care Team Providers Care Data Science And Iot Manager Name Role Phone Malena Weaver Unavailable [phone] Allergies Allergen (clinical drug ingredient) Drug/Non Drug Allergy documented on EMR Reaction Allergy Type Onset Date Status NO KNOWN DRUG ALLERGIES (uncoded) Unknown Allergy Active Reason For Referral No Information Medications Medication SIG (Take, Route, Frequency, Duration) Notes Start Date End Date Status Janumet 50-1,000 mg Oral 2 Sig: take 1 tablet by oral route 2 times per day with meals ; Active CITRACAL Oral Indications: - (-5) Active Lisinopril 10 mg Oral 1 Sig: take 1 tablet (10 mg) by oral route once daily ; Active pravastatin 10 mg Oral 1 Sig: take 1 tablet (10 mg) by oral route once daily at bedtime ; Active Social History Social History Additional Details Category Social Info Options Details Migrated Social History Migrated Social History Tobacco Use: Tobacco (Never) Plan Of Treatment No Information Medical (General) History Medical History History ICD Code OnsetDate: 11/03/2012 ICD9: 733.90 Osteo penia Surgical History Surgery Date(Month/Year) *No pertinent PSHx
--- OUTSIDE RECORDS SUMMARY | 2024-11-10 07:40 | XMS_ITS | Clinical Summary ---
Author Organization [facility] Address [address] [place] [address] Care Team Providers Care Computer Technical Support Specialist Name Role Phone Unavailable Primary Care Provider Unavailabl e Source Comments [facility],non-owned Affiliates and Associated Physician Practices is amultiple site organization consisting of ambulatory clinics and hospital sitesin [place], [place], [place] and [place]. This disclosure is being madepursuant to the Care Everywhere program and may not contain all information available regarding this patient. Last updated 17.[facility] Immunizations Immunization Administration Dates Next Due INFLUENZA [...] season) 2023 DEPRESSION SCREENING 03/18/2024 INFLUENZA VACCINE (#1) 2024 12/18/2019 Respiratory Syncytial Virus (RSV) Vaccine Pt: or [...] patient's age to complete [place] [address] [facility] SELF PAY NO INSURANCE Member Subscriber Plan / Payer (Ef fective for All Dates) Name:Paulina Morales Member ID:Not on file Relation to Subscriber:Not on file Name:PAULINA MORALES Subscriber ID:Not on file (Home) Address: [address] [place] [place] [address] Payer ID:Not on file Group ID:Not on file Type:Self Pay Address: [place], [place] MEDICARE
== END 2024-11-10 07:36 | disposition home or self-care (01) ==
LOC: ANHFOHIMG 07:37
PROVIDERS: PCP Nurse Practitioner; Visit Provider Nurse Practitioner
DX: Z12.31 Encounter for screening mammogram for malignant neoplasm of breast (principal)
CPT/HCPCS: 77063; 77067

== ENCOUNTER 2025-02-06 09:10 | Outpatient (CLI) | payer MEDICARE, SELFPAY ==
--- OUTSIDE RECORDS SUMMARY | 2023-05-17 07:37 | XMS_ITS | Continuity of Care Document ---
Author Organization [facility] Address [address] [place] [address] [address] [place] [address] Phone Care Team Providers Care Complaint Evaluation Officer Name Role Phone David DOMINGUEZVivian Unavailable Unavailable Procedures Procedure Date Therapeutic Activities Neuromuscular Re-Ed Therapeutic Exercise Hot or Cold Pack Paraffin Bath Therapeutic Activities Neuromuscular Re-Ed Therapeutic Exercise Hot or Cold Pack Therapeutic Activities Neuromuscular Re-Ed Therapeutic Exercise Hot or Cold Pack Therapeutic Activities Neuromuscular Re-Ed Therapeutic Exercise Hot or Cold Pack Therapeutic Activities Therapeutic Exercise Manual Therapy Hot or Cold Pack Progress Note Therapeutic Activities Neuromuscular Re-Ed Therapeutic Exercise Hot or Cold Pack Therapeutic Activities Neuromuscular Re-Ed Therapeutic Exercise Hot or Cold Pack Electrical Stimulation Therapeutic Activities Neuromuscular Re-Ed Hot or Cold Pack Therapeutic Exercise Electrical Stimulation Therapeutic Activities Neuromuscular Re-Ed Hot or Cold Pack Therapeutic Exercise Electrical Stimulation Therapeutic Activities Neuromuscular Re-Ed Therapeutic Exercise Hot or Cold Pack Electrical Stimulation Therapeutic Activities Neuromuscular Re-Ed Therapeutic Exercise Hot or Cold Pack Electrical Stimulation Therapeutic Activities Neuromuscular Re-Ed Therapeutic Exercise Hot or Cold Pack Electrical Stimulation Therapeutic Activities Neuromuscular Re-Ed Hot or Cold Pack Electrical Stimulation Therapeutic Activities Neuromuscular Re-Ed Therapeutic Exercise Manual Therapy Hot or Cold Pack Electrical Stimulation Therapeutic Activities Therapeutic Exercise Hot or Cold Pack Electrical Stimulation FO pip/dip with joint/spring prefab Progress Note Neuromuscular Re-Ed Therapeutic Exercise Hot or Cold Pack Electrical Stimulation Therapeutic Activities Neuromuscular Re-Ed Therapeutic Exercise Hot or Cold Pack Electrical Stimulation Therapeutic Activities Therapeutic Exercise Manual Therapy Hot or Cold Pack Therapeutic Activities Therapeutic Exercise Hot or Cold Pack Therapeutic Activities Neuromuscular Re-Ed Therapeutic Exercise Hot or Cold Pack Electrical Stimulation Therapeutic Exercise Manual Therapy Hot or Cold Pack Neuromuscular Re-Ed Therapeutic Exercise Manual Therapy Hot or Cold Pack Electrical Stimulation Neuromuscular Re-Ed Therapeutic Exercise Manual Therapy Hot or Cold Pack Electrical Stimulation Neuromuscular Re-Ed Therapeutic Exercise Hot or Cold Pack Progress Note Neuromuscular Re-Ed Therapeutic Exercise Hot or Cold Pack Neuromuscular Re-Ed Therapeutic Exercise Hot or Cold Pack Neuromuscular Re-Ed Therapeutic Exercise Manual Therapy Hot or Cold Pack Therapeutic Activities Neuromuscular Re-Ed Therapeutic Exercise Manual Therapy Hot or Cold Pack Therapeutic Activities Therapeutic Exercise Manual Therapy Hot or Cold Pack Neuromuscular Re-Ed Therapeutic Exercise Manual Therapy Hot or Cold Pack Neuromuscular Re-Ed Therapeutic Exercise Manual Therapy Hot or Cold Pack Therapeutic Activities Neuromuscular Re-Ed Therapeutic Exercise Hot or Cold Pack Therapeutic Activities Neuromuscular Re-Ed Therapeutic Exercise Hot or Cold Pack Progress Note Therapeutic Activities Neuromuscular Re-Ed Therapeutic Exercise Hot or Cold Pack Therapeutic Activities Neuromuscular Re-Ed Therapeutic Exercise Hot or Cold Pack Therapeutic Activities Therapeutic Exercise Hot or Cold Pack Therapeutic Activities Neuromuscular Re-Ed Therapeutic Exercise Hot or Cold Pack Therapeutic Activities Neuromuscular Re-Ed Therapeutic Exercise Hot or Cold Pack Therapeutic Activities Neuromuscular Re-Ed Therapeutic Exercise Hot or Cold Pack Therapeutic Activities Neuromuscular Re-Ed Therapeutic Exercise Hot or Cold Pack Therapeutic Activities Neuromuscular Re-Ed Therapeutic Exercise Hot or Cold Pack Therapeutic Activities Neuromuscular Re-Ed Therapeutic Exercise Hot or Cold Pack Progress Note Therapeutic Activities Neuromuscular Re-Ed Therapeutic Exercise Hot or Cold Pack Therapeutic Activities Neuromuscular Re-Ed Therapeutic Exercise Hot or Cold Pack Therapeutic Activities Therapeutic Exercise Hot or Cold Pack Therapeutic Activities Therapeutic Exercise Hot or Cold Pack Therapeutic Activities Therapeutic Exercise Hot or Cold Pack Therapeutic Activities Therapeutic Exercise Hot or Cold Pack Therapeutic Activities Neuromuscular Re-Ed Hot or Cold Pack Therapeutic Activities Neuromuscular Re-Ed Therapeutic Exercise Hot or Cold Pack Therapeutic Activities Neuromuscular Re-Ed Hot or Cold Pack Progress Note Therapeutic Activities Neuromuscular Re-Ed Therapeutic Exercise Manual Therapy Hot or Cold Pack Therapeutic Activities Neuromuscular Re-Ed Hot or Cold Pack Therapeutic Activities Neuromuscular Re-Ed Therapeutic Exercise Hot or Cold Pack Therapeutic Activities Therapeutic Exercise Hot or Cold Pack Therapeutic Activities Neuromuscular Re-Ed Hot or Cold Pack Therapeutic Activities Neuromuscular Re-Ed Hot or Cold Pack Therapeutic Activities Neuromuscular Re-Ed Therapeutic Exercise Hot or Cold Pack Therapeutic Activities Neuromuscular Re-Ed Therapeutic Exercise Hot or Cold Pack Therapeutic Activities Neuromuscular Re-Ed Therapeutic Exercise Hot or Cold Pack Doc neg elder mal no plan PRES/ABSN URINE INCON ASSESS OT Evaluation Moderate Complexity Therapeutic Activities Neuromuscular Re-Ed Therapeutic Exercise Hot or Cold Pack Advance Directives Directive Yes / No Effective Date File Name No Information Encounters Encounter Description Practice Location Reason(s) For Visit Diagnoses Date Provider Providers Copied on Encounter [facility] [address], [place], [place], [id number], [place] tel:[phone] [place] No Information 4 David Vivian. . [facility], [address], [place], [place], [address], [place] tel:[phone] [place] No Information 4 David Vivian. . Referring Provider: Aureliano Guillen, [address], [place], [address]. tel:[phone] [place] [address], [address], [place], [place], [address], [place] tel:[phone] [place] No Information 4 David Vivian. . Referring Provider: Aureliano Guillen, [address]no[address], [place], [address]. tel:[phone] [place] [address] [address], [place], [place], [address], [place] tel:[phone] [place] No Information 3 David Vivian. . Referring Provider: Aureliano Guillen, [address], [place], [address]. tel:[phone] [place] [address], [place], [place], [address], [place] tel:[phone] [place] No Information 3 David Vivian. . Referring Provider: Aureliano Guillen, [address], [place], [address]. tel:[phone] [place] [address] [address], [place], [place], [address], [place] tel:[phone] [place] No Information 3 David Vivian. . Referring Provider: Ronaldo Granados [address], [place], [address]. tel:[phone] [place] [address] [address], [place], [place], [address], [place] tel:[phone] [place] No Information 3 David Vivian. . Referring Provider: Aureliano Guillen, [address], [place], [address]. tel:[phone] [place] [address], [address], [place], [place], [address], [place] tel:[phone] [place] No Information Nov 3 David Vivian. . Referring Provider: Aureliano Guillen, [address] [facility] [address]A, [place], [address]. tel:[phone] [place] [address], [address], [place], [place], [address], tel:[phone] [place] No Information 3 David Vivian. . Referring Provider: Aureliano Guillen, Ronal[address] [facility] [address]A, [place], [address]. tel:[phone] [place] [address], [address], [place], [place], [address], [place] tel:[phone] [place] No Information 3 David Vivian. . Referring Provider: Aureliano Guillen, Ronal[address] [facility] [address]6B[address]12A, [place], [address]. tel:[phone] [place] [address], [address], [place], [place], [address], [place] tel:[phone] [place] No Information Nov0 3 David Vivian. . Referring Provider: Aureliano Guillen, [address], [place], [address]. tel:[phone] [place] [address], [address], [place], [place], [address], [place] tel:[phone] [place] No Information Nov-0 8-202 3 David Vivian. . Referring Provider: Aureliaon Guillen, [address] [facility] [address]12A, [place], [address]. tel:[phone] [place] [address], [address] [facility], [place], [place], [address], tel:[phone] [place] No Information Nov-0 1-202 3 David Vivian. . Referring Provider: Aureliano Guillen, [address] [facility] [address]A, [place], [address]. tel:[phone] [place] [address], [facility] [address], [place], [place], [address], [place] tel:[phone] [place] No Information Dec-3 0-202 3 David Vivian. . Referring Provider: Aureliano Guillen, [address] [facility] [address]12A, [place], [address]. tel:[phone] [place] [address], [address] [facility], [place], [place], [address], [place] tel:[phone] [place] No Information Dec-2 5- 3 David Vivian. . Referring Provider: Aureliano Guillen, [address] [facility] [address]A/6B/12A, [place], [address]. tel:[phone] [place] [address], [facility] [address], [place], [place], [address], [place] tel:[phone] [place] No Information Dec-1 7-202 3 David Vivian. . Referring Provider: Aureliano Guillen, [address] [facility] [address]A/6B/12A, [place], [address]. tel:[phone] [place] [address] [address], [place], [place], [address], [place] tel:[phone] [place] No Information Dec-1 2-202 3 David Vivian. . Referring Provider: Robin Schaefer, [address] [place] [address], [address]. tel:[phone] [place] [address], [address], [place], [place], [address], [place] tel:[phone] [place] No Information Oct-0 3 David Vivian. . Referring Provider: Robin Schaefer, 4 [facility] [address] [facility], [place], [address]. tel:[phone] [place] [address], [address], [place], [place], [address], [place] tel:[phone] [place] No Information Oct-0 3 David Vivian. . Referring Provider: Robin Schaefer, 4 [facility] 130 [facility], [place], [address]. tel:[phone] [address] [place] [address], [address], [place], [place], [address], [place] tel:[phone] [place] No Information Sep-2 3 David Vivian. . Referring Provider: Robin Schaefer, 4 [facility] [address] [facility], [place], [address]. tel:[phone] [place] [address], [address], [place], [place], [address], [place] tel:[phone] [place] No Information Sep-1 3 David Vivian. . Referring Provider: Robin Schaefer, 4 [facility] [address] [facility], [place], [address]. tel:[phone] [place] [address] [address], [place], [place], [address], [place] tel:[phone] [place] No Information Sep-1 3 David Vivian. . Referring Provider: Robin Schaefer, 4 [facility] [address] [facility], [place], [address]. tel:[phone] [place] [address], [address], [place], [place], [address], [place] tel:[phone] [place] No Information Sep-0 3 David Vivian. . Referring Provider: Robin Schaefer, 4 [facility] [address] [facility], [place], [address]. tel:[phone] [place] [address], [address], [place], [place], [address], [place] tel:[phone] [place] No Information Nov-0 3 David Vivian. . Referring Provider: Robin Schaefer, 4 [facility] [address] [facility], [place], [address]. tel:[phone] [place] [address], [address], [place], [place], [address], [place] tel:[phone] [place] No Information 3 David Vivian. . Referring Provider: Robin Schaefer, 4 [facility] [address] [facility], [place], [address]. tel:[phone] [place] [address], [address], [place], [place], [address], [place] tel:[phone] [place] No Information 3 David Vivian. . Referring Provider: Robin Schaefer, 4 [facility] [address] [facility], [place], [address]. tel:[phone] [place] [address] [facility] [address], [place], [place], [address], [place] tel:[phone] [place] No Information Oct- 3 David Vivian. . Referring Provider: Robin Schaefer, 4 [facility] [address] [facility], [place], [address]. tel:[phone] [place] [address], [address], [place], [place], [address], [place] tel:[phone] [place] No Information 2 3 David Vivian. . Referring Provider: Robin Schaefer, 4 [facility] [address] [facility], [place], [address]. tel:[phone] [place], [place] [address] [address], [place], [place], [address], [place] tel:[phone] [place] No Information 3 David Vivian. . Referring Provider: Robin Schaefer, 4 [facility] [address] [facility], [place], [address]. tel:[phone] [place] [address], [address], [place], [place], [address], [place] tel:[phone] [place] No Information 3 David Vivian. . Referring Provider: Robin Schaefer, [address] [place] [address] [address] [facility], [place], [address]. tel:[phone] [place] [address], [address], [place], [place], [address], [place] tel:[phone] [place] No Information 3 David Vivian. . Referring Provider: Robin Schaefer, 4 [facility] [address] [facility], [place], [address]. tel:[phone] [place] [address], [address], [place], [place], [address], [place] tel:[phone] [place] No Information 3 David Vivian. . Referring Provider: Robin Schaefer, 4 [facility] [address] [facility], [place], [address]. tel:[phone] [place] [address] [address], [place], [place], [address], [place] tel:[phone] [place] No Information 3 David Vivian. . Referring Provider: Robin Schaefer, 4 [facility] [address] [facility], [place], [address]. tel:[phone] [place] [address] [address], [place], [place], [address], [place] tel:[phone] [place] No Information 3 David Vivian. . Referring Provider: Robin Schaefer, 4 [facility] [address], [place], [address]. tel:[phone] [place] [address], [address], [place], [place], [address], [place] tel:[phone] [place] No Information 3 David Vivian. . Referring Provider: Robin Schaefer, 4 [facility] [address] [facility], [place], [address]. tel:[phone] [place] [address], [address], [place], [place], [address], [place] tel:[phone] [place] No Information 3 David Vivian. . Referring Provider: Robin Schaefer, 4 [facility] [address] [facility], [place], [address]. tel:[phone] [place] [address], [address], [place], [place], [address], [place] tel:[phone] [place] No Information 3 David Vivian. . Referring Provider: Robin Schaefer, 4 [facility] [address] [facility], [place], [address]. tel:[phone] [place] [address], [address], [place], [place], [address], [place] tel:[phone] [place] No Information 3 David Vivian. . Referring Provider: Robin Schaefer, 4 [facility] [address] [facility], [place], [address]. tel:[phone] [place] [address], [address], [place], [place], [address], [place] tel:[phone] [place] No Information 3 David Vivian. . Referring Provider: Robin Schaefer, 4 [facility] [address] [facility], [place], [address]. tel:[phone] [place] [address], [address], [place], [place], [address], [place] tel:[phone] [place] No Information 3 David Vivian. . Referring Provider: Robin Schaefer, 4 [facility] [address] [facility], [place], [address]. tel:[phone] [place] [address], [address], [place], [place], [address], [place] tel:[phone] [place] No Information 3 David Vivian. . Referring Provider: Robin Schaefer, 4 [facility] [address] [facility], [place], [address]. tel:[phone] [place] [address], [address], [place], [place], [address], [place] tel:[phone] [place] No Information 3 David Vivian. . Referring Provider: Robin Schaefer, 4 [facility] [address] [facility], [place], [address]. tel:[phone] [place] [address], [address], [place], [place], [address], [place] tel:[phone] [place] No Information 3 David Vivian. . Referring Provider: Robin Schaefer, 4 [facility] [address] [facility], [place], [address]. tel:[phone] [place] [address], [address], [place], [place], [address], [place] tel:[phone] [place] No Information 3 David Vivian. . Referring Provider: Robin Schaefer, 4 [facility] [address] [facility], [place], [address]. tel:[phone] [place] [address], [address], [place], [place], [address], [place] tel:[phone] [place] No Information 3 David Vivian. . Referring Provider: Robin Schaefer, [address], [place], [address]. tel:[phone] [place] [address], [address], [place], [place], [address], [place] tel:[phone] [place] No Information Truong-1 3 David Vivian. . Referring Provider: Robin Schaefer, 4 [facility] [address] [facility], [place], [address]. tel:[phone] [place] [address], [address], [place], [place], [address], [place] tel:[phone] [place] No Information Truong-1 3 David Vivian. . Referring Provider: Robin Schaefer, 4 [facility] [address] [facility], [place], [address]. tel:[phone] [place] [address], [address], [place], [place], [address], [place] tel:[phone] [place] No Information Truong-0 3 David Vivian. . Referring Provider: Robin Schaefer, 4 [facility] [address] [facility], [place], [address]. tel:[phone] [place] [address] [address], [place], [place], [address], [place] tel:[phone] [place] No Information Truong-0 3 David Vivian. . Referring Provider: Robin Schaefer, 4 [facility] [address] [facility], [place], [address]. tel:[phone] [place] [address], [address], [place], [place], [address], [place] tel:[phone] [place] No Information Truong-0 3 David Vivian. . Referring Provider: Robin Schaefer, 4 [facility] [address] [facility], [place], [address]. tel:[phone] [place] [address] [address], [place], [place], [address], [place] tel:[phone] [place] No Information July-2 6- 3 David Vivian. . Referring Provider: Robin Schaefer, 4 [facility] [address], [place], [address]. tel:[phone] [place] [address], [address], [place], [place], [address], [place] tel:[phone] [place] No Information July-2 3 David Vivian. . Referring Provider: Robin Schaefer, 4 [facility] [address], [place], [address]. tel:[phone] [place] [address], [address], [place], [place], [address], [place] tel:[phone] [place] No Information May-1 7- 3 David Vivian. . Referring Provider: Robin Schaefer, 4 [facility] [address] [facility], [place], [address]. tel:[phone] [place] [address], [address], [place], [place], [address], [place] tel:[phone] [place] No Information July-1 5- 3 David Vivian. . Referring Provider: Robin Schaefer, 4 [facility] [address] [facility], [place], [address]. tel:[phone] [place] [address] [address], [place], [place], [address], [place] tel:[phone] [place] No Information May-1 0-202 3 David Vivian. . Referring Provider: Robin Schaefer, 4 [facility] [address], [place], [address]. tel:[phone] [place] [address], [address], [place], [place], [address], [place] tel:[phone] [place] No Information May-0 8-202 3 David Vivian. . Referring Provider: Robin Schaefer, 4 [facility] [address], [place], [address]. tel:[phone] [place] [address], [address], [place], [place], [address], [place] tel:[phone] [place] No Information May-0 3 David Vivian. . Referring Provider: Robin Schaefer, 4 [facility] [address] [facility], [place], [address]. tel:[phone] [place] [address], [address], [place], [place], [address], [place] tel:[phone] [place] No Information May-0 3 David Vivian. . Referring Provider: Robin Schaefer, 4 [facility] [address] [facility], [place], [address]. tel:[phone] [place] [address], [address], [place], [place], [address], [place] tel:[phone] [place] No Information Apr-2 3 David Vivian. . Referring Provider: Robin Schaefer, 4 [facility] [address] [facility], [place], [address]. tel:[phone] [place] [address], [address], [place], [place], [address], [place] tel:[phone] [place] No Information Apr-2 3 David Vivian. . Referring Provider: Robin Schaefer, 4 [facility] [address] [facility], [place], [address]. tel:[phone] [place] [address], [address], [place], [place], [address], [place] tel:[phone] [place] No Information Apr-2 0 3 David Vivian. . Referring Provider: Robin Schaefer, 4 [facility] [address] [facility], [place], [address]. tel:[phone] [place] [address], [address], [place], [place], [address], [place] tel:[phone] [place] No Information 3 David Vivian. . Referring Provider: Robin Schaefer, [address] [place] [address] [address] [place], [address]. tel:[phone] Family History Family Member Type Diagnosis Age At Onset No Information Payers Payer name Insurance type Covered democrat ID Authorcheyennea pinascooter(s) Medicare [place] [id number] [facility] Medicare Supplement CI [id number] Social History Type Description Quantity Date Captured Comments Sex Female Smoking Status No Information Chief Complaint And Reason For Visit No Information Reason For Referral Reason For Referral No Information History Of Present Illness Encounter Date Complaint History Of Prese nt Illness No Information Functional Status Date Functional Assessmen t No Information Instructions Date Instruction Additional Infor mation No Information Assessments Type Assessment Date No Information Patient Care Teams Name Effective Dates (start - stop) Status Members No Information
--- OUTSIDE RECORDS SUMMARY | 2025-02-06 09:16 | XMS_ITS | Clinical Summary ---
Author Organization [facility] Address [address] [place] [address] Care Team Providers Care Owner Operator Tanker Truck Driver Name Role Phone Unavailable Primary Care Provider Unavailabl e Source Comments [facility],non-owned Affiliates and Associated Physician Practices is amultiple site organization consisting of ambulatory clinics and hospital sitesin [place], [place], [place] and [place]. This disclosure is being madepursuant to the Care Everywhere program and may not contain all information available regarding this patient. Last updated 17.[facility] Immunizations Immunization Administration Dates Next Due INFLUENZA [...] 2004 ZOSTER VACCINE (1 of 2) 2004 DEPRESSION SCREENING 03/18/2024 COVID-19 VACCINE (1 - 2024-2 6 season) 2024 INFLUENZA VACCINE (#1) 2024 12/18/2019 Respiratory Syncytial [...] patient's age to complete [place] [address] MEDICARE [facility] SELF PAY NO INSURANCE Member Subscriber Plan / Payer (Ef fective for All Dates) Name:Paulina Morales Member ID:Not on file Relation to Subscriber:Not on file Name:PAULINA MORALES Subscriber ID:Not on file (Home) Address: [address] [place] [address] Payer ID:Not on file Group ID:Not on file Type:Self Pay Address: [place], [place] MEDICARE
--- OUTSIDE RECORDS SUMMARY | 2025-02-06 09:16 | XMS_ITS | Patient Health Record ---
Author Organization [facility] Address [address] [place] [address] Care Team Providers Care Shackler Name Role Phone Malena Weaver Unavailable [phone] Allergies Allergen (clinical drug ingredient) Drug/Non Drug [...]
--- OUTSIDE RECORDS SUMMARY | 2025-02-06 09:16 | XMS_ITS | Patient Health Record ---
Author Organization [facility] Address [address] [place], [place] [id number] Care Team Providers Care Sales Associate Cashier Name Role Phone TERRY Valentin Unavailable [phone] Zane Schreiber Unavailable Unavailable Allergies No Known Allergies Reason For Referral No Information Medications Medication SIG (Take, Route, Frequency, Duration) Notes Start Date End Date Status Ciclopirox Olamine 0.77 % Cream APPLY SMALL AMOUNT TO FUNGAL TOENAILS 1-2X DAILY. External; Duration: 30 Days Acti ve Farxiga 5 MG Tablet TAKE 1 TABLET BY YONNY TH EVERY DAY Oral; Duration: 90 Days Active Trulicity 0.75 MG/0.5ML Solution Pen-injector INJECT 0.75 MG (0.5 ML) SUBCUTANEOUSLY WEEKLY Subcutaneous; Duration: 28 Days Active metFORMIN HCl 500 MG Tablet TAKE 2 TABLETS BY MOUTH TWICE A DAY Oral; Duration: 90 Days Active Lisinopril 40 MG Tablet TAKE 1 TABLET BY MOUTH EVERY DAY Oral; Duration: 90 Days Active Pravastatin Sodium 10 MG Tablet TAKE 1 TABLET BY MOUTH EVERY DAY Oral; Duration: 90 Days Active Immunizations Vaccine Route Administration Date Status Comme nts Influenza, high dose seasonal Unknown 02/14/2023 Admini stered Social History Social History Additional Details Category Social Info Options Details Migrated Social History Migrated Social History History of tobacco use : , Smoking Status : Former tobacco user Plan Of Treatment No Information Insurance Providers Payer Name Payer Address Payer Phone Subscriber Number Group Number Insured Name Patient Relationship to Insured Coverage Start Date Coverage End Date Medicare Part B [place] [address] [place] [address] [id number] LOGAN PLATA Self - patient is the insured [facility] [address] [address] [place], [place] [id number] LOGAN PLATA Self - patient is the insured
[2025-02-06 09:45] LABS: Hemoglobin A1C 7.3 % (<5.7)
[2025-02-06 09:58] LABS: Alanine Aminotransferase 17 U/L (6-35); Albumin Level 4.3 g/dL (3.5-5.1); Alkaline Phosphatase 81 U/L (38-126); Anion Gap 10 mmol/L (4-12); Aspartate Amino Transferase 22 U/L (14-36); Bilirubin,Total 0.7 mg/dL (0.2-1.3); Blood Urea Nitrogen 13 mg/dL (7-17); Calcium 9.2 mg/dL (8.4-10.2); Carbon Dioxide 24 mmol/L (22-30); Chloride 104 mmol/L (98-107); Cholesterol 126 mg/dL (0-200); Estimated Glomerular Filt Rate > 60; Glucose 125 mg/dL (65-110); HDL Direct 35 mg/dL; Potassium 3.6 mmol/L (3.4-5.0); Sodium 138 mmol/L (137-145); Total Protein 7.5 g/dL (6.3-8.2); Triglycerides 90 mg/dL (<150)
== END 2025-02-06 09:11 | disposition home or self-care (01) ==
PROVIDERS: PCP Nurse Practitioner; Visit Provider Nurse Practitioner
DX: E11.9 Type 2 diabetes mellitus without complications (principal); E78.5 Hyperlipidemia, unspecified
CPT/HCPCS: 36415; 80053; 80061; 83036